=== PATIENT | male | born 1960 | race Caucasian/White ===

== ENCOUNTER 2018-04-17 21:00 | Inpatient (IN) | payer OTHER ==
[~2018-04-17 21:00] MED LIST: ISOVUE-370 76%-LOCM 1 ML ONE; Lidocaine 1% PF 5 ML VIAL ONE; PROPOFOL 200 MG/20 ML VIAL ONE; Succinylcholine Chloride 20 MG/ML 10 ml SYRINGE FS ONE; ePHEDrine/0.9% NaCl/PF SYRINGE 50 mg/10 ml ONE
[2018-04-17] MEDS ORDERED: Ondansetron ODT 4 MG TAB ONE (21:23)
[2018-04-17 21:29] LABS: #Eosinphils 0.2 thou/uL (0.0-0.7); #Lymphocytes 0.6 thou/uL (1.20-3.40); #Neutrophils 6.9 thou/uL (1.40-6.50); %Eosinophils 1.8 % (0.0-10.0); %Lymphocytes 6.4 % (21.0-51.0); %Monocytes 11.8 % (0.0-10.0); Hemoglobin 14.5 g/dL (14.0-18.0); Mean Corpuscular HGB CONC 35.8 g/dL (32.0-36.0); Mean Corpuscular Hemoglobin 31.3 pg (27.0-31.0); Mean Corpuscular Volume 87.3 fL (78.0-98.0); Mean Platelet Volume 7.3 fL (7.4-10.4); Platelet Count 184 thou/uL (130-400); RBC Distribution Width 14.1 % (11.5-14.5); Red Blood Cell (RBC) Count 4.65 mill/uL (4.70-6.10); White Blood Cell (WBC) Count 8.7 thou/uL (4.8-10.8)
[2018-04-17 21:50] LABS: ALT (SGPT) 74 U/L (8-55); AST (SGOT) 90 U/L (5-34); Alkaline Phosphatase 266 U/L (40-150); Anion Gap 13 mmol/L (10-20); BUN (Urea Nitrogen) 19 mg/dL (8.4-25.7); Calc. Creatinine Clearance 0 mL/min (70-130); Calcium 8.8 mg/dL (7.8-10.44); Carbon Dioxide 21 mmol/L (22-29); Chloride 94 mmol/L (98-107); Estimated GFR-MDRD 51; Globulin 4.5 g/dL (2.4-3.5); Glucose 237 mg/dL (70-105); Lipase 40 U/L (8-78); Potassium 5.2 mmol/L (3.5-5.1); Protein, Total 7.5 g/dL (6.0-8.3); Sodium 123 mmol/L (136-145)
--- NOTE | 2018-04-17 22:05 | CT ---
CT ABDOMEN AND PELVIS WITH CONTRAST: History: Abdominal pain after drinking a sports drink. Nausea, vomiting. Technique: Multiple contiguous axial images were obtained in a CT of the abdomen and pelvis with cont rast. Coronal reformats were performed. FINDINGS: The liver is cirrhotic in appearance. The spleen is enlarged measuring 14.1 cm in length. There are s plenic and gastric varies. There is a recanalized parumbilical vein with extensive abdominal wall cheryl ices. There is free air in the upper abdomen. The source for this free air is uncertain. There is moderate stool in the rectum. The small bowel is unremarkable. The appendix is normal. No free fluid is seen i n the abdomen or pelvis. The visualized inferior thoracic is unremarkable. No focal lytic lesions are seen. There are gallston es in the gallbladder. There is a nonobstructing calcification in the right kidney. A subcentimeter h ypodensity in the right kidney likely represents a cyst. The left kidney, adrenal glands, and pancrea s are unremarkable. No abdominal or pelvic lymphadenopathy are seen. Atherosclerotic calcifications a re seen in the aorta. Degenerative changes are seen in the spine. IMPRESSION: 1. There is free air in the abdomen which is likely secondary to a perforated discus. The discus caus ing this is not able to be identified on this CT examination. 2. Cirrhosis with sequellae of portal hypertension. 3. Cholelithiasis. 4. Nonobstructing right renal calcification. 5. Right renal cyst. 6. Dr. Ocasio notified of the findings at 9:56 p.m. on 04-17-18. POS: [facility]
[2018-04-17] MEDS ORDERED: Piperacillin/Tazobactam 4.5 GM VIAL ONE (22:14)
[2018-04-17 22:20] LABS: INR-International Normal Ratio 1.2; Prothrombin Time 14.9 SEC (12.0-14.7)
[2018-04-17] MEDS ORDERED: Fentanyl 100 MCG/2 ML VIAL ONE (22:31)
[2018-04-17] MEDS ORDERED: Ondansetron HCl/PF 4 MG/2 ML Vial IVP PRN (22:46)
--- NOTE | 2018-04-18 00:01 | HP ---
HISTORY OF PRESENT ILLNESS: A 57-year-old male incarcerated [facility], presents to the emergency room with abdominal pain for 24 hours. He underwent a CAT scan demonstrating free air. White count is 8, hemoglobin 14, platelet count 184,000. PT 14.9, slightly elevated INR 1.2, PTT 34.6. Basic me tabolic profile: Sodium 123, potassium 5.2, carbon dioxide 21, BUN 19, creatinine 1.43, glucose 237. Bilirubin is 3, AST 90, ALT 74, lipase 40. CAT scan of abdomen and pelvis could not reveal where t he pneumoperitoneum is. The etiology is pneumoperitoneum. CAT scan did demonstrate changes consiste nt with cirrhosis, splenomegaly, splenic and gastric varices and an extensive abdominal wall varices. ALLERGIES: None. SOCIAL HISTORY: Tobacco: The patient has been incarcerated for 10 years. He did not smoke prior to this. Alcohol, he is incarcerated for 10 years, did not consume excessive alcohol prior to this inc arceration. Drug use, cocaine use prior to incarceration. MEDICATIONS: Citalopram 20 mg q.a.m. for 30 days, diphenhydramine 25 mg twice a day; Havrix 1440 un its per meal, one syringe intermuscular dose once a day for 180 days (for hepatitis A), Novolin insul in 100 units 10 mL vial 33 units subcu a.m., 22 units subcutaneous p.m., Novolin R 100 units 10 mL vial 5 units subcu twice daily morning and evening, Novolin 100 sliding scale, risperidone 1 mg a.m., ursodiol 300 mg 3 times a day, Xifaxan 200 mg tabs twice a day for 30 days, Tylenol twice daily p.r. n. 325 mg, aspirin 81 mg a day, atorvastatin 10 mg a day, body lotion Clotrimazole 1% cream twice char ly, ferrous sulfate 325 three times a day for 30 days, furosemide 40 mg a day for 30 days, hemorrhoid al cream at bedtime, lactulose 10 g per 15 mL 30 mL (20 grams) three times a day, levothyroxine 0.15 mg daily, omeprazole 20 mg daily, propranolol 20 mg b.i.d., Proventil inhaler 4 times a day as needed , Qvar 80 mcg inhaler 120 puffs b.i.d., spironolactone 25 mg twice a day, triamcinolone cream twice d aily. PAST SURGICAL HISTORY: Inguinal hernia repair. PAST MEDICAL HISTORY: Chromatosis, cirrhosis, insulin-dependent diabetes, hypertension, diabetic madison ropathy, esophageal varices, first diagnosed in 08/2015, hyperlipidemia, hypothyroidism treated medic ally, mild persistent asthma, PAD, psoriasis, and hepatitis A. REVIEW OF SYSTEMS: Ten point noncontributory. FAMILY HISTORY: Noncontributory. 1. Patient states he had 6 months ago some sort of cardiac evaluation, sounds like a PET scan and he was told his heart was okay. 2. Depressive illness. 3. Essential hypertension. 4. As above, type 2 diabetes, insulin-dependent. 5. Chronic ischemic heart disease specified this is a diagnosis from the assisted. PHYSICAL EXAMINATION: VITAL SIGNS: 69 kilograms, 113/41, 72 18, 98 degrees. HEAD, EYES, EARS, NOSE AND THROAT: Unremarkable. LUNGS: Clear to auscultation. CARDIAC: Regular rate and rhythm without murmur or gallop. ABDOMEN: Diffusely tender. Slightly protuberant, peritoneal signs diffusely. EXTREMITIES: No ankle edema. No changes of chronic venous stasis. SKIN: Skin color is slightly jaundiced. ASSESSMENT AND PLAN: 1. Perforated viscus with peritoneal signs and acute abdomen. He has been on a PPI. He does have c irrhosis. Laparotomy has increased risk of , bleeding, uremia, renal failure have discussed thi s with the patient. We will plan laparotomy, abdominal washout. Procedures indicated based on lapar otomy findings. 2. Cirrhosis. 3. Splenomegaly. 4. History of esophageal varices. Platelet count is normal. PT/INR essentially normal. Bilirubin and transaminases are elevated. 5. History of hepatitis A. 6. Chromatosis. 7. Type 2 insulin-dependent diabetes mellitus. 8. Hypertension. 9. Elevated cholesterol. 10. Heart disease listed as a diagnosis. The patient states having hard exam and was told things lo oked like they were okay 6 months ago.
[2018-04-18] MEDS ORDERED: Midazolam HCl 2 mg/2 ml Vial ONE (00:49)
[2018-04-18] MEDS ORDERED: Dextrose 5% in Water 1,000 ML IV PRN (01:02)
[2018-04-18] MEDS ORDERED: Dextrose 50% Abboject 50 ML SYRINGE SLOW IVP PRN (01:02)
[2018-04-18] MEDS ORDERED: Ondansetron HCl/PF 4 MG/2 ML Vial IVP PRN (01:14)
[2018-04-18] MEDS ORDERED: Ondansetron ODT 4 MG TAB SL PRN (01:14)
[2018-04-18] MEDS ORDERED: Lactated Ringer's 1,000 ML IV SCH (01:15)
[2018-04-18] MEDS ORDERED: Ventilator Sedation Protocol 1 EACH FS SCH (01:15)
[2018-04-18] MEDS ORDERED: Fentanyl 100 MCG/2 ML VIAL SLOW IVP PRN (01:15)
[2018-04-18] MEDS ORDERED: Propofol BOLUS 1,000 MG/100 ML VIAL IV PRN (01:26)
[2018-04-18] MEDS ORDERED: fentaNYL Citrate/PF 2,000 MCG in Sodium Chloride 0.9% 60 ML IV SCH (01:26)
[2018-04-18] MEDS ORDERED: DISCONTINUE PREVIOUS NARCOTIC PAIN MEDICATIONS AND BENZODIAZEPINES FS SCH (01:26)
[2018-04-18] MEDS ORDERED: Lorazepam 2 MG/ML VIAL SLOW IVP PRN (01:26)
[2018-04-18] MEDS ORDERED: Propofol 1,000 MG/100 ML VIAL IV PRN (01:26)
[2018-04-18] MEDS ORDERED: Fentanyl BOLUS 250 ML IVPB PRN (01:26)
[2018-04-18] MEDS: Sodium Chloride 0.9% 1,000 ML IV SCH ×3 (01:56→20:43)
[2018-04-18] MEDS: Albumin 25% 25 GM/100 ML BOT IVPB SCH ×4 (02:28→20:41)
--- NOTE | 2018-04-18 04:15 | OP ---
DATE OF OPERATION: 04/18/2018 PREOPERATIVE DIAGNOSES: Acute abdomen peritonitis, perforated ulcer. POSTOPERATIVE DIAGNOSES: Perforated pyloric channel ulcer, cirrhosis, diabetes, hypertension. PROCEDURES: Left subclavian vein triple lumen catheter. Exploratory laparotomy, Heineke-Mikabilioz py loroplasty omental patch closure, #19 gold JOSE CARLOS drain. FINDINGS: Cirrhotic liver. No significant ascites only bile peritonitis from the perforated ulcer. SURGEON: Dr. Desean Taveras. ANESTHESIA: General anesthesia. ESTIMATED BLOOD LOSS: 300 mL. Note, most of blood loss from the subcutaneous tissue with her dilated veins. Prevena VAC left over the wound. Telfa yanet left in a staple closed wound. DESCRIPTION OF PROCEDURE: The patient was taken to the operating room where under general anesthesia in supine position, left periclavicular chest prepared with ChloraPrep, draped in routine fashion. Trocar catheter cannulated the subclavian vein in infraclavicular approach. Seldinger technique used to place a triple lumen catheter securing it with 3-0 silk suture. Biopatch sterile dressing applie d after the J-wire removed. Each port aspirated blood and flushed with saline solution. Abdomen was clipped of hair, prepared with ChloraPrep, draped in routine fashion. Incision was made in the upper abdomen, came down to skin and subcutaneous tissue, midline fascia and abdominal cavity sharply. There was of significant blood loss from subcutaneous tissue from dilated veins. This was controlled with cautery. Liver was cirrhotic. There was not any significant ascites, but there was bile peritonitis and this was evacuated. Nancy maneuver performed, taking great care using clips an d LigaSure and cautery to mobilize the hepatic flexure to mobilize the colon out of the way and then Nancy maneuver performed mobilizing the duodenum and the first and second portion of the duodenum. Perforated pyloric channel ulcer noted. Pyloroplasty undertaken with the cautery. Longitudinal teno last, pyloromyotomy and duodenotomy and transverse closure in two layers with inner layer in a contin uous locked suture of 3-0 Vicryl and outer layer of the abdomen with Lembert suture of 2-0 silk. The re was a tension free closure. NG tube was palpated in good position as placed by Anesthesia. Oment al patch mobilized from the transverse colon using the LigaSure and cautery and secured to the closur e with interrupted suture of 2-0 silk. Abdominal cavity thoroughly irrigated with 4-5 liters of sali ne solution, irrigant evacuated. #19 gold JOSE CARLOS drain placed through a right lateral abdominal wall inc ision and brought into the subhepatic space, secured with 3-0 nylon suture. A sponge and needle coun ts were correct and good hemostasis obtained. Midline fascia closed with continuous suture of #1 PDS . Skin and subcutaneous tissues irrigated, skin approximated loosely with michael and Telfa yanet ap plied. Prevena dressing applied.
[2018-04-18 05:11] LABS: INR-International Normal Ratio 1.3; PTT 34.1 SEC (22.9-36.1)
[2018-04-18 05:24] LABS: ALT (SGPT) 63 U/L (8-55); AST (SGOT) 77 U/L (5-34); Albumin 3.2 g/dL (3.5-5.0); Alkaline Phosphatase 162 U/L (40-150); Anion Gap 14 mmol/L (10-20); BUN (Urea Nitrogen) 17 mg/dL (8.4-25.7); Bilirubin, Total 4.5 mg/dL (0.2-1.2); Calc. Creatinine Clearance 90 mL/min (70-130); Calcium 8.2 mg/dL (7.8-10.44); Carbon Dioxide 18 mmol/L (22-29); Chloride 104 mmol/L (98-107); Estimated GFR-MDRD 89; Globulin 3.2 g/dL (2.4-3.5); Glucose 202 mg/dL (70-105); Potassium 4.5 mmol/L (3.5-5.1); Protein, Total 6.4 g/dL (6.0-8.3); Sodium 131 mmol/L (136-145)
[2018-04-18 06:28] LABS: #Lymphocytes 0.2 thou/uL (1.20-3.40); #Monocytes 0.8 thou/uL (0.11-0.59); #Neutrophils 6.9 thou/uL (1.40-6.50); %Eosinophils 0.1 % (0.0-10.0); %Monocytes 9.9 % (0.0-10.0); %Neutrophils 87.9 % (42.0-75.0); Hemoglobin 11.2 g/dL (14.0-18.0); Mean Corpuscular HGB CONC 35.2 g/dL (32.0-36.0); Mean Corpuscular Hemoglobin 30.9 pg (27.0-31.0); Mean Corpuscular Volume 87.6 fL (78.0-98.0); Mean Platelet Volume 7.7 fL (7.4-10.4); PLT Morphology Comment Appears Decreased; Platelet Count 86 thou/uL (130-400); RBC Distribution Width 14.1 % (11.5-14.5); RBC Morphology Normal; Red Blood Cell (RBC) Count 3.63 mill/uL (4.70-6.10); White Blood Cell (WBC) Count 7.8 thou/uL (4.8-10.8)
[2018-04-18] MEDS: HumaLOG 300 UNITS/3 ML VIAL SC PRN ×3 (07:21→18:39)
[2018-04-18] MEDS: Albuterol Sulfate 2.5 mg/3 ml Neb NEB SCH ×4 (07:47→23:40)
[2018-04-18] MEDS ORDERED: DC Sedation Protocol FS ONE (07:56)
--- NOTE | 2018-04-18 08:27 | CON ---
DATE OF CONSULTATION: 04/18/2018 CONSULTING PHYSICIAN: Dr. Taveras. REASON FOR CONSULTATION: Critical care management. The following encompasses 40 minutes of critical care time. HISTORY OF PRESENT ILLNESS: Mr. Houston is a 57-year-old inmate, who underwent a laparotomy for a pe rforated pyloric channel ulcer yesterday. He was left intubated after surgery and is currently resti ng comfortably on mechanical ventilation. PAST MEDICAL HISTORY: 1. Cirrhosis. 2. Insulin-dependent diabetes mellitus. 3. Esophageal varices. 4. Hyperlipidemia. 5. Hypothyroidism. 6. Asthma. 7. Peripheral vascular disease. 8. Psoriasis. 9. Hepatitis A. 10. There is a mention in the history and physical of what appears to be hemochromatosis. PAST SURGICAL HISTORY: Inguinal hernia repair and the pyloric channel ulcer repair last night. ALLERGIES: None. SOCIAL HISTORY: He has been in senior living for over 10 years. No history of smoking. Does not consume a lcohol. He did use cocaine prior to being in [facility]. FAMILY MEDICAL HISTORY: Unremarkable. ALLERGIES: None. REVIEW OF SYSTEMS: Twelve-point review of systems cannot be obtained, as patient is currently on [facility] hanical ventilation. PHYSICAL EXAMINATION: VITAL SIGNS: Heart rate 96, blood pressure 90/52, O2 sat 100%, respiratory rate 14. GENERAL: He is awake, alert, and can follow commands. HEENT: Pupils react. Sclerae icteric. Oropharynx clear. NECK: Without adenopathy or JVD. LUNGS: Clear without wheezing or rhonchi. CARDIOVASCULAR: S1 and S2 regular. No audible murmur, rub, or gallop. ABDOMEN: He has midline wound VAC in place. Right-sided peritoneal drain in place. EXTREMITIES: No clubbing, cyanosis, or edema. He has dark colored skin. LABORATORY DATA: White blood cell count 7.8, hematocrit 31.8, platelet count 86. INR 1.3, PTT 34.1. Sodium 131, potassium 4.5, chloride 104, CO2 of 18, BUN 17, creatinine 0.8, glucose 203. Chest x-r ay shows a properly placed endotracheal tube, maybe a subtle left pleural effusion. ASSESSMENT: 1. Status post laparotomy with the patient left intubated after surgery. This is not a complication of surgery, but is an expected finding after prolonged surgery. 2. History of cirrhosis. 3. Insulin-dependent diabetes mellitus. PLAN: 1. The patient passed a spontaneous breathing trial and can be extubated. 2. He is continuing antibiotics for presumed peritonitis. Continue normal saline. 3. He is on enoxaparin for DVT prophylaxis and Protonix for GI prophylaxis. We will follow with you .
[2018-04-18] MEDS: Piperacillin/Tazobactam 3.375 GM in Sodium Chloride 0.9% 100 ML IVPB SCH ×2 (08:54→12:35)
[2018-04-18] MEDS: Pantoprazole 40 MG VIAL IVP SCH ×2 (08:54→20:31)
[2018-04-18] MEDS ORDERED: RIFAXIMIN PER TUBE SCH (09:00)
[2018-04-18] MEDS ORDERED: Levothyroxine 150 MCG TAB PER TUBE SCH (09:00)
[2018-04-18] MEDS ORDERED: Citalopram 20 MG TAB PER TUBE SCH (09:00)
[2018-04-18] MEDS ORDERED: Atorvastatin Calcium 10 MG TAB PER TUBE SCH (09:00)
[2018-04-18] MEDS ORDERED: Non-Formulary Item 1 EACH (Ferrous Sulfate [Ferrous Sulfate] 325 MG) PER TUBE SCH (09:00)
[2018-04-18] MEDS ORDERED: Propranolol 10 MG TAB PER TUBE SCH (09:00)
[2018-04-18] MEDS ORDERED: risperiDONE 1 MG TAB PER TUBE SCH (09:00)
[2018-04-18] MEDS ORDERED: Ursodiol 300 MG CAP PER TUBE SCH (09:00)
[2018-04-18] MEDS ORDERED: Acetaminophen 325 MG TAB PER TUBE SCH (09:00)
--- NOTE | 2018-04-18 09:56 | RAD ---
PORTABLE CHEST: Date: 04/18/18 HISTORY: Respiratory distress. Intubation. FINDINGS: Endotracheal and NG tubes are in satisfactory position. Patient is rotated on this exam. Left subclav osvaldo line is seen, catheter tip overlies the superior vena cava. No signs of pneumothorax. There are i nterstitial changes in the bases, probably related to atelectasis. IMPRESSION: 1. Endotracheal and NG tubes in satisfactory position. 2. Bibasilar atelectatic lung change. POS: [facility]
--- NOTE | 2018-04-18 11:51 | CON ---
DATE OF CONSULTATION: 04/18/2018 PRIMARY CARE PHYSICIAN: [facility] call admission. PRIMARY ATTENDING: Dr. Taveras. REASON FOR CONSULTATION: Medical comanagement. HISTORY OF PRESENT ILLNESS: A 57-year-old male, who has underlying history of cirrhosis of liver with portal hypertension, who lives in detention. He was taken yesterday evening to [facility] for acute abdominal pain. He was hypotensive. He had recently GI bleed 2 weeks ago. The patient was having diffuse abdominal pain. He was hypotensive in the emergency room with a blood pressure 87/39. Patient was diagnosed with a perforated viscus through CT abdomen and pelvis and he was suffering from acute abdomen. He was having nausea and vomiting yesterday whole day. His pain has gradually gotten worse and he was feeling weak, dizzy, lightheaded, and that is why he was taken to emergency room. Reason his blood pressure was in 80s, he was recently admitted at [facility] for GI bleed. At that time, he had melena and hematemesis. Last night, the patient was admitted under General Surgery. Patient underwent laparotomy, and pyloroplasty was performed. Patient was found with a perforated pyloric channel ulcer. After surgery, his wound was closed with a wound VAC. He was in CCU. He was having NG tube with low intermittent suction. His pain was controlled. We were consulted this morning for medical comanagement. He has underlying cirrhosis of liver with portal hypertension. He has diabetes and other medical issues. REVIEW OF SYSTEMS: The following complete review of systems was negative, unless otherwise mentioned in the HPI or below: Constitutional: Weight loss or gain, ability to conduct usual activities. Skin: Rash, itching. Eyes: Double vision, pain. ENT/Mouth: Nose bleeding, neck stiffness, pain, tenderness. Cardiovascular: Palpitations, dyspnea on exertion, orthopnea. Respiratory: Shortness of breath, wheezing, cough, hemoptysis, fever, or night sweats. Gastrointestinal: Poor appetite, abdominal pain, heartburn, nausea, vomiting, constipation, or diarrhea. Genitourinary: Urgency, frequency, dysuria, nocturia. Musculoskeletal: Pain, swelling. Neurologic/Psychiatric: Anxiety, depression. Allergy/Immunologic: Skin rash, bleeding tendency. Please see my HPI for pertinent positive and negative. All other review of systems reviewed and negative except as mentioned in the HPI. CURRENT HOME MEDICATIONS: Aspirin 81 mg daily, Lipitor 10 mg p.o. daily, Celexa 20 mg daily, Lasix 40 mg p.o. b.i.d., lactulose 30 mL p.o. 4 times daily , levothyroxine 100 mcg p.o. daily, Novolin R 12 units subcu twice daily, potassium chloride 10 mEq p.o. daily, Inderal 10 mg twice daily, Qvar inhalation twice daily, risperidone 1 mg p.o. daily, Aldactone 100 mg twice daily, ursodiol 300 mg 3 times daily, rifaximin 600 mg twice daily. PAST MEDICAL HISTORY: Diabetes, type 2, on insulin; hypothyroidism; cirrhosis of liver with portal hypertension; dyslipidemia. PAST SURGICAL HISTORY: Hernia repair x2; right arm surgery; cyst removed from his cheek. PAST PSYCHIATRIC HISTORY: Anxiety and depression. SOCIAL HISTORY: Patient does not have any history of alcohol abuse. He is a former drug abuser. He abused cocaine. He denies any smoking. FAMILY HISTORY: No strong family history of premature coronary artery disease, stroke, or cancer. ALLERGY: No known drug allergy EMERGENCY ROOM COURSE: Patient was given IV fluid. He was given Zosyn, morphine, ringer lactate IV fluid, and Zofran. PHYSICAL EXAMINATION: VITAL SIGNS: In our emergency room, blood pressure improved to 132/70, pulse 64 , respiratory rate 18, temperature 97.8, saturation 100% on room air, weight 69.4 kilograms. GENERAL: This morning, the patient is alert, awake, in no obvious acute distress. HEENT: Head: Normocephalic, atraumatic. Eyes: Pupils round, reactive to light. Extraocular muscle intact. ENT: NG tube in place with low intermittent suction. Dry-appearing mucous membranes. No oral lesion. No pharyngeal erythema, no exudate, no thrush. NECK: Supple, no JVD, no thyromegaly, no carotid bruit. LUNGS: Clear to auscultation without any rhonchi or rales. CARDIAC: S1 and S2, regular. No murmur, no gallop, no rub. ABDOMEN: Patient does not have any bowel sound. He has surgical site with a wound VAC in place. GENITALIA: Lobato catheter in place. EXTREMITIES: No edema. Good peripheral pulsation. SKIN: No skin rash. HEMATOLOGICAL SYSTEM: No lymphadenopathy. PSYCHIATRIC: Normal affect. SIGNIFICANT LABORATORY DATA: Today, CBC: WBC 7.8, hemoglobin 11.2, platelets 86. INR 1.3. BMP: Sodium 131, potassium 4.5, chloride 104, carbon dioxide 18 , BUN 17, creatinine 0.88, glucose 202, calcium 8.5. LFTs: Bilirubin 4.5, AST 77, ALT 63, alkaline phosphatase is 162, albumin 3.2, lipase 40. CT of the abdomen and pelvis done in the emergency room, which showed free air in the abdomen secondary to perforated viscus, cirrhosis with portal hypertension, cholelithiasis, nonobstructive right renal calcification. Chest x -ray, based on my review, endotracheal and NG tube in satisfactory position, bibasilar atelectatic lung changes. ASSESSMENT AND PLAN: 1. Acute abdomen secondary to perforated pyloric channel ulcer, status post exploratory laparotomy and pyloroplasty. We will defer management to primary team. Currently, patient has NG tube with low intermittent suction. He is n.p.o. He required, after surgery, transient endotracheal intubation and mechanical ventilatory support, and this morning, he is extubated. We will control his pain with pain medication. Surgical care, after surgery, we will defer to primary team. 2. Abnormal electrolytes. He has initially hyponatremia and hyperkalemia, most likely related with his cirrhosis of liver, as well as his aldosterone and Lasix use, but currently sodium improved and potassium is also improved. We will monitor electrolytes while in hospital and correct accordingly. 3. Acute kidney failure, prerenal etiology. After IV fluid, the patient's renal function is improved to normal. 4. Cirrhosis of liver with portal hypertension. He has abnormal LFTs. Etiology is uncertain at this point, but we will check hepatitis profile tomorrow morning and HIV. 5. Diabetes, type 2. Patient is currently n.p.o. We will continue with insulin as per sliding scale per protocol. Diabetic diet will be given when patient is able to take oral intake. 6. Thrombocytopenia, likely related with cirrhosis of liver. At this point, we will hold on any heparin products, because of low platelet count. Only sequential compression device boots will be given to prevent any bleeding. 7. Gastrointestinal prophylaxis, Protonix 40 mg IV q.12 hourly. 8. Postoperative transient respiratory insufficiency, requiring mechanical ventilatory support. Pulmonary consulted. The patient is extubated this morning. Sedation protocol discontinued. 9. Dyslipidemia. We will continue Lipitor 10 mg p.o. daily when patient's oral intake resumed. 10. Anxiety with depression. Similarly, Celexa and risperidone will be restarted when patient able to take oral intake. 11. Hypothyroidism. We will continue Synthroid 150 mcg p.o. daily when oral intake resumed. 12. Asthma. We will continue Ventolin nebulization q.6 hourly p.r.n., Dulera inhalation twice daily. 13. Cirrhosis of liver with portal hypertension. As mentioned above, when the patient's oral intake resumed, at that time we will resume his Inderal, rifaximin, Aldactone, ursodiol, Lasix as per home dosage. 14. Deep venous thrombosis prophylaxis. Sequential compression device boots only. No Lovenox, because of low platelet count and a recent history of gastrointestinal bleed. 15. Gastrointestinal prophylaxis, Protonix 40 mg IV b.i.d. 16. Code status: The patient is FULL CODE. Patient does not have any surrogate decision maker. Thank you for the consult. We will follow up with you while in hospital. SUZY
--- NOTE | 2018-04-18 12:53 | PRG ---
DATE OF SERVICE: 04/18/2018 SUBJECTIVE: Mr. Houston is in ICU this morning. Dr. Harper saw him and extubated him. He is awake and alert and conversive. OBJECTIVE: VITAL SIGNS: 98.4, 100, 190/49. Lobato catheter, 990 mL out in the last 24 hours postoperatively. J P drain output not recorded. LUNGS: Clear to auscultation. CARDIAC: Regular rate and rhythm without murmur, rub, or gallop. ABDOMEN: Soft, no guarding. Postoperative tenderness. Prevena wound VAC over the closed wound with michael and Telfa. EXTREMITIES: Unremarkable. LABORATORY DATA: White count 7.8, hemoglobin 11.2. Sodium 131, potassium 4.5, BUN and creatinine 17 and 0.88, bilirubin 4.5 up from 3.0, AST and ALT stable essentially. This morning, his PT is 16 and INR 1.3. ASSESSMENT AND PLAN: 1. Perforated pyloric channel ulcer. Continue JOSE CARLOS drain. Continue NG tube. Continue n.p.o. status. Continue intravenous antibiotics. 2. 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 Platelet count is okay. There was no significant ascites foun d at the time of operation, only bilious drainage from his perforated ulcer. Etiology of cirrhosis i s uncertain at this time. He has been on iron therapy, which contradicts hemochromatosis etiology. He reports hepatitis serology has been negative. Hepatitis A treatment undergoing at the present. 3. Hypertension. 4. Diabetes mellitus. 5. Asthma. Appreciate residential sales consultant's help in his care, hospitalist, and critical care. At this point, the patient is stable, can be moved to the floor.
[2018-04-18] MEDS: Piperacillin/Tazobactam 3.375 GM, Admixture Fee 1 EACH in Sodium Chloride 0.9% 100 ML IVPB SCH ×2 (18:29→23:42)
[2018-04-18] MEDS ORDERED: Enoxaparin Sodium 30 MG/0.3 ML SYRINGE SC SCH (21:00)
[2018-04-18] MEDS ORDERED: NPH, Human Insulin Isophane 300 UNIT/3 ML VIAL SC SCH (21:00)
[2018-04-19] MEDS: Albumin 25% 25 GM/100 ML BOT IVPB SCH ×4 (01:43→20:40)
[2018-04-19] MEDS: HumaLOG 300 UNITS/3 ML VIAL SC PRN ×4 (01:43→18:31)
[2018-04-19] MEDS: Sodium Chloride 0.9% 1,000 ML IV SCH ×2 (02:04→19:37)
[2018-04-19 04:28] LABS: INR-International Normal Ratio 1.6; PTT 41.4 SEC (22.9-36.1); Prothrombin Time 18.9 SEC (12.0-14.7)
[2018-04-19 04:36] LABS: ALT (SGPT) 39 U/L (8-55); AST (SGOT) 39 U/L (5-34); Albumin 3.7 g/dL (3.5-5.0); Alkaline Phosphatase 87 U/L (40-150); Anion Gap 11 mmol/L (10-20); BUN (Urea Nitrogen) 20 mg/dL (8.4-25.7); Bilirubin, Total 3.4 mg/dL (0.2-1.2); Calc. Creatinine Clearance 82 mL/min (70-130); Calcium 8.6 mg/dL (7.8-10.44); Carbon Dioxide 21 mmol/L (22-29); Chloride 108 mmol/L (98-107); Estimated GFR-MDRD 79; Globulin 2.3 g/dL (2.4-3.5); Glucose 183 mg/dL (70-105); Potassium 4.2 mmol/L (3.5-5.1); Sodium 136 mmol/L (136-145)
[2018-04-19 04:56] LABS: HBCM Index 0.08 S/CO (0-0.79); Hep A IgM AB Non-Reactive (NonReactive); Hep A IgM S/CO 0.12 S/CO (0-0.79); Hep B Surf Ag Non-Reactive S/CO (NonReactive); Hep C IgG Ab Non-Reactive (NonReactive); Hep C Index 0.12 S/CO (0-0.79); Hepatitis B Core IGM Abs Non-Reactive (NonReactive)
[2018-04-19 05:27] LABS: Band 11 % (5-11); Eosinophils 2 % (0-10); Hemoglobin 7.9 g/dL (14.0-18.0); Lymphocytes 4 % (21-51); MDiff Complete? YES; Mean Corpuscular HGB CONC 35.8 g/dL (32.0-36.0); Mean Corpuscular Hemoglobin 31.8 pg (27.0-31.0); Mean Corpuscular Volume 88.8 fL (78.0-98.0); Mean Platelet Volume 7.9 fL (7.4-10.4); Monocytes 20 % (0-10); Neutrophil 63 % (42-75); PLT Morphology Comment Appears Decreased; Platelet Count 47 thou/uL (130-400); RBC Distribution Width 13.9 % (11.5-14.5); Red Blood Cell (RBC) Count 2.48 mill/uL (4.70-6.10); White Blood Cell (WBC) Count 3.8 thou/uL (4.8-10.8)
[2018-04-19] MEDS: Piperacillin/Tazobactam 3.375 GM, Admixture Fee 1 EACH in Sodium Chloride 0.9% 100 ML IVPB SCH ×3 (06:00→18:43)
[2018-04-19] MEDS: Albuterol Sulfate 2.5 mg/3 ml Neb NEB SCH ×4 (07:11→23:55)
[2018-04-19] MEDS ORDERED: hydrALAZINE 20 MG/ML VIAL SLOW IVP PRN (07:45)
[2018-04-19] MEDS ORDERED: Eucerin (Mineral Oil/Petrolatum,White) 30 gm Jar TOP PRN (07:45)
[2018-04-19] MEDS ORDERED: Artificial Tears 18 DROP/0.9 ML EA EYE PRN (07:45)
[2018-04-19] MEDS ORDERED: Acetaminophen 650 MG Suppository PR PRN (07:45)
[2018-04-19] MEDS ORDERED: Sodium Chloride 0.65% Nasal 44 ML BOT EA NARE PRN (07:45)
[2018-04-19] MEDS ORDERED: Chloraseptic Spray 180 ml Bottle PO PRN (07:45)
[2018-04-19] MEDS ORDERED: Bisacodyl 10 MG SUPP PR PRN (07:45)
[2018-04-19] MEDS: Pantoprazole 40 MG VIAL IVP SCH ×2 (08:59→20:41)
[2018-04-19] MEDS ORDERED: Vancomycin HCl 1 GM in Premix Bag 1 BAG IVPB SCH (09:00)
--- NOTE | 2018-04-19 11:02 | PDOC.PN ---
- Subjective Encounter Start Date: 04/19/18 Encounter Start Time: 08:20 pt is seated in bed, his pain is at surgical site, he has not passed gas, has NG tube, received blood - Objective MAR Reviewed: Yes Vital Signs & Weight: Vital Signs (12 hours) Temp Pulse Pulse Resp BP BP Pulse Ox 04/19/18 08:36 98.8 F 114 H 22 H 94/56 L 97 04/19/18 08:35 98.8 F 114 H 22 H 94/56 L 97 04/19/18 07:50 98.0 F 116 H 116 H 22 H 95/53 L 95/53 L 94 L 04/19/18 07:11 110 H 16 04/19/18 04:26 98.2 F 102 H 20 98/52 L 97 04/19/18 00:11 98.3 F 101 H 20 87/44 L 90 L 04/18/18 23:42 90 L 04/18/18 23:40 91/49 L 90 L Most Recent Monitor Data Heart Rate from ECG 101 NIBP 96/51 NIBP BP-Mean 63 Respiration from ECG 21 SpO2 96 I&O: 04/18/18 04/19/18 04/20/18 06:59 06:59 06:59 Intake Total 711.9 2160 0 Output Total 990 2065 Balance -278.1 95 0 Result Diagrams: 04/19/18 03:45 04/19/18 03:45 Additional Labs: Accuchecks 04/19/18 04/19/18 04/18/18 06:06 00:39 18:20 POC Glucose 187 H 206 H 207 H 04/18/18 12:01 POC Glucose 205 H Phys Exam - Physical Examination Constitutional: NAD HEENT: PERRLA, moist MMs NG tube+ Neck: no JVD, supple Respiratory: no wheezing, no rales, no rhonchi Cardiovascular: RRR, no significant murmur, no rub Gastrointestinal: soft surgical site with dressing Musculoskeletal: no edema, pulses present Neurological: non-focal, moves all 4 limbs Lymphatic: no nodes Psychiatric: normal affect Skin: no rash, normal turgor Dx/Plan (1) Acute abdomen Code(s): R10.0 - ACUTE ABDOMEN Status: Acute Comment: due to 2 (2) Perforated abdominal viscus Code(s): [id number] - Status: Acute (3) S/P laparotomy Status: Acute Comment: for problem 1 (4) Abnormal LFTs Code(s): R94.5 - ABNORMAL RESULTS OF LIVER FUNCTION STUDIES Status: Chronic (5) Diastolic dysfunction Code(s): I51.9 - HEART DISEASE, UNSPECIFIED Status: Chronic (6) Pancytopenia Code(s): D61.818 - OTHER PANCYTOPENIA Status: Chronic (7) Thrombocytopenia Code(s): D69.6 - THROMBOCYTOPENIA, UNSPECIFIED Status: Chronic (8) Anxiety and depression Code(s): F41.9 - ANXIETY DISORDER, UNSPECIFIED; F32.9 - MAJOR DEPRESSIVE DISORDER, SINGLE EPISODE, UNSPECIFIED Status: Chronic (9) Asthma Code(s): J45.909 - UNSPECIFIED ASTHMA, UNCOMPLICATED Status: Chronic (10) Cirrhosis of liver Code(s): K74.60 - UNSPECIFIED CIRRHOSIS OF LIVER Status: Chronic Qualifiers: Hepatic cirrhosis type: unspecified biliary cirrhosis Qualified Code(s): K74.5 - Biliary cirrhosis, unspecified (11) Diabetes type 2, controlled Code(s): E11.9 - TYPE 2 DIABETES MELLITUS WITHOUT COMPLICATIONS Status: Chronic (12) Dyslipidemia Code(s): E78.5 - HYPERLIPIDEMIA, UNSPECIFIED Status: Chronic (13) Hypertension Code(s): I10 - ESSENTIAL (PRIMARY) HYPERTENSION Status: Chronic (14) Acute kidney failure Status: Resolved (15) Hypokalemia Code(s): E87.6 - HYPOKALEMIA Status: Resolved (16) Hyponatremia Code(s): E87.1 - HYPO-OSMOLALITY AND HYPONATREMIA Status: Resolved (17) Wound infection Code(s): T14.8XXA - OTHER INJURY OF UNSPECIFIED BODY REGION, INITIAL ENCOUNTER; L08.9 - LOCAL INFECTION OF THE SKIN AND SUBCUTANEOUS TISSUE, UNSP Status: Acute Comment: over scalp with staph (18) Ileus following gastrointestinal surgery Code(s): K91.30 - POSTPROC INTESTINAL OBST, UNSP TO PARTIAL VERSUS COMPLETE Status: Acute (19) Anemia due to acute blood loss Code(s): D62 - ACUTE POSTHEMORRHAGIC ANEMIA Status: Acute - Plan cont current plan of care, continue antibiotics * received PRBC today * continue IVF * diet advancement as per surgeon when bowel function resume * medication reviewed as below * symptomatic treatment * continue post operative surgical care. * continue zosyn * will add vancomycin * albumin given * start low dose insulin Review of Systems - Review of Systems Constitutional: negative: fever, chills, sweats, weakness, malaise, other Eyes: negative: Pain, Vision Change, Conjunctivae Inflammation, Eyelid Inflammation, Redness, Other ENT: negative: Ear Pain, Ear Discharge, Nose Pain, Nose Discharge, Nose Congestion, Mouth Pain, Mouth Swelling, Throat Pain, Throat Swelling, Other Respiratory: negative: Cough, Dry, Shortness of Breath, Hemoptysis, SOB with Excertion, Pleuritic Pain, Sputum, Wheezing Cardiovascular: negative: chest pain, palpitations, orthopnea, paroxysmal nocturnal dyspnea, edema, light headedness, other Gastrointestinal: Abdominal Pain. negative: Nausea, Vomiting, Diarrhea, Constipation, Melena, Hematochezia, Other Genitourinary: negative: Dysuria, Frequency, Incontinence, Hematuria, Retention , Other Musculoskeletal: negative: Neck Pain, Shoulder Pain, Arm Pain, Back Pain, Hand Pain, Leg Pain, Foot Pain, Other Skin: negative: Rash, Lesions, Missael, Bruising, Other - Medications/Allergies Allergies/Adverse Reactions: Allergies Allergy/AdvReac Type Severity Reaction Status Date / Time No Known Drug Allergies Allergy Verified 04/18/18 19:40 Medications: Current Medications Acetaminophen (Tylenol) 650 mg MO Q4H PRN PRN Reason: Headache/Fever or Mild Pain Albumin Human (Albumin 25%) 25 gm IVPB 0200,0800,1400,2000 [facility] Stop: 04/20/18 02:01 Last Admin: 04/19/18 08:58 Dose: 25 gm Albuterol Sulfate (Ventolin) 2.5 mg NEB [id number] [facility] Last Admin: 04/19/18 07:11 Dose: 2.5 mg Artificial Tears (Tears Naturale) 0 drop EA EYE PRN PRN PRN Reason: Dry Eyes Bisacodyl (Dulcolax) 10 mg MO DAILYPRN PRN PRN Reason: Constipation Dextrose/Water (Dextrose 50%) 25 gm SLOW IVP PRN PRN PRN Reason: Hypoglycemia Glucagon (Glucagon) 1 mg IM PRN PRN PRN Reason: Hypoglycemia Hydralazine HCl (Apresoline) 10 mg SLOW IVP Q4H PRN PRN Reason: Systolic BP > 180 Dextrose/Water (D5w) 1,000 mls @ 0 mls/hr IV .Q0M PRN; As Directed PRN Reason: Hypoglycemia Sodium Chloride (Normal Saline 0.9%) 1,000 mls @ 120 mls/hr IV .Q8H20M [facility] Last Admin: 04/19/18 02:04 Dose: Not Given Piperacillin Sod/Tazobactam Sod 3.375 gm/ Miscellaneous Medication 1 each/ Sodium Chloride 100 mls @ 200 mls/hr IVPB Q6HR [facility] Last Admin: 04/19/18 06:00 Dose: 100 mls Vancomycin HCl 1 gm/ Device 200 mls @ 200 mls/hr IVPB Q12HR [facility] Last Admin: 04/19/18 10:27 Dose: 200 mls Insulin Human Isoph/Insulin Regular (Humulin 70/30) 10 units SC BID [facility] Insulin Human Lispro (Humalog) 0 units SC .AGGRESSIVE SLIDING PRN PRN Reason: Aggressive Correctional Scale Last Admin: 04/19/18 06:25 Dose: 3 unit Mineral Oil/White Petrolatum (Eucerin Cream) 0 gm TOP BIDPRN PRN PRN Reason: Dry Skin Miscellaneous Medication (Pharmacy To Dose) 0 each IVPB ASDIR PRN PRN Reason: Pharmacy to Dose VANCOMYCIN Mometasone Furoate/Formoterol Fumar (Dulera 100 Mcg/5 Mcg Inhaler) 1 puff INH BID-RT [facility] Morphine Sulfate (Morphine) 2 mg SLOW IVP Q2H PRN PRN Reason: Mild Pain (1-3) Last Admin: 04/19/18 09:53 Dose: 2 mg Morphine Sulfate (Morphine Sulfate) 4 mg SLOW IVP Q2H PRN PRN Reason: Moderate Pain (4-6) Last Admin: 04/18/18 14:39 Dose: 4 mg Ondansetron HCl (Zofran) 4 mg IVP Q6H PRN PRN Reason: Nausea/Vomiting Pantoprazole Sodium (Protonix) 40 mg IVP Q12HR [facility] Last Admin: 04/19/18 08:59 Dose: 40 mg Phenol (Chloraseptic [place] 180 Ml Bot) 0 ml PO PRN PRN PRN Reason: Sore Throat Sodium Chloride (Flush - Normal Saline) 10 ml IVF PRN PRN PRN Reason: Saline Flush Sodium Chloride (Flush - Normal Saline) 10 ml IV Q12HR [facility] Last Admin: 04/18/18 20:33 Dose: 10 ml Sodium Chloride ([place] Nasal [place] 0.65%) 0 ml EA NARE QIDPRN PRN PRN Reason: Nasal Congestion
[2018-04-19] MEDS: Insulin NPH/Reg Insulin Hm 300 UNITS/3 ML VIAL SC SCH ×2 (11:18→20:40)
[2018-04-19] MEDS ORDERED: Sodium Chloride 0.9% 1,000 ML IV SCH (11:36)
[2018-04-19] MEDS: Mometasone/Formoterol 120 PUFF INHALER INH SCH (19:09)
[2018-04-19 19:27] LABS: Hemoglobin 10.4 g/dL (14.0-18.0); Mean Corpuscular HGB CONC 36.4 g/dL (32.0-36.0); Mean Corpuscular Hemoglobin 32.1 pg (27.0-31.0); Mean Corpuscular Volume 88.3 fL (78.0-98.0); Mean Platelet Volume 7.4 fL (7.4-10.4); Platelet Count 65 thou/uL (130-400); RBC Distribution Width 13.7 % (11.5-14.5); Red Blood Cell (RBC) Count 3.24 mill/uL (4.70-6.10); White Blood Cell (WBC) Count 6.7 thou/uL (4.8-10.8)
[2018-04-19 19:58] LABS: Band 3 % (5-11); Eosinophils 1 % (0-10); Lymphocytes 4 % (21-51); MDiff Complete? YES; Monocytes 5 % (0-10); Neutrophil 86 % (42-75); PLT Morphology Comment Appears Decreased
[2018-04-20] MEDS: Piperacillin/Tazobactam 3.375 GM, Admixture Fee 1 EACH in Sodium Chloride 0.9% 100 ML IVPB SCH ×4 (00:10→17:47)
--- NOTE | 2018-04-20 01:52 | PRG ---
DATE OF SERVICE: 04/19/2018 SUBJECTIVE: Mr. Houston is doing well today. OBJECTIVE: VITAL SIGNS: 98.5 degrees, heart rate 105, respiration rate 16. PULMONARY: Clear to auscultation. CARDIAC: Regular rate and rhythm without murmur or gallop. ABDOMEN: Slightly distended, protuberant, probably some ascites. EXTREMITIES: Unremarkable. GI: Gastric drainage 50 mL per 24 hours. JOSE CARLOS drainage 375 serosanguineous. LABORATORY DATA: This morning his hemoglobin was 7.9. He was given 2 units of blood and recheck is 10.4, white count 6.7 this evening. Platelet count was low to 47. He is given a platelet count and it was up to 65 this evening. PT 18, INR 1.6. Sodium 136, potassium 4.2, carbon dioxide 21, BUN 20, creatinine 0.97. ASSESSMENT AND PLAN: 1. Cirrhosis. 2. Perforated pyloric channel ulcer with a JOSE CARLOS drain. NG tube output is minimal. We will discontinu e the NG tube and he can have sips and chips. We will advance him to clear liquids in the morning. We will follow his hemoglobin. I have held his Lovenox and saline to allow diuresis.
[2018-04-20] MEDS: Albumin 25% 25 GM/100 ML BOT IVPB SCH (02:28)
[2018-04-20 03:43] LABS: ALT (SGPT) 33 U/L (8-55); AST (SGOT) 31 U/L (5-34); Albumin 4.2 g/dL (3.5-5.0); Alkaline Phosphatase 84 U/L (40-150); Anion Gap 12 mmol/L (10-20); BUN (Urea Nitrogen) 16 mg/dL (8.4-25.7); Calc. Creatinine Clearance 99 mL/min (70-130); Calcium 9.2 mg/dL (7.8-10.44); Carbon Dioxide 20 mmol/L (22-29); Chloride 109 mmol/L (98-107); Estimated GFR-MDRD Greater than 90; Globulin 2.4 g/dL (2.4-3.5); Glucose 132 mg/dL (70-105); Potassium 3.5 mmol/L (3.5-5.1); Protein, Total 6.6 g/dL (6.0-8.3); Sodium 137 mmol/L (136-145)
[2018-04-20 03:57] LABS: INR-International Normal Ratio 1.5; PTT 39.2 SEC (22.9-36.1); Prothrombin Time 18.4 SEC (12.0-14.7)
[2018-04-20 04:30] LABS: Band 12 % (5-11); Hemoglobin 9.6 g/dL (14.0-18.0); Lymphocytes 8 % (21-51); MDiff Complete? YES; Mean Corpuscular HGB CONC 36.5 g/dL (32.0-36.0); Mean Corpuscular Hemoglobin 32.5 pg (27.0-31.0); Mean Corpuscular Volume 88.9 fL (78.0-98.0); Mean Platelet Volume 7.9 fL (7.4-10.4); Monocytes 9 % (0-10); Neutrophil 71 % (42-75); PLT Morphology Comment Appears Decreased; Platelet Count 55 thou/uL (130-400); RBC Distribution Width 13.7 % (11.5-14.5); Red Blood Cell (RBC) Count 2.96 mill/uL (4.70-6.10); White Blood Cell (WBC) Count 4.3 thou/uL (4.8-10.8)
[2018-04-20] MEDS: Albuterol Sulfate 2.5 mg/3 ml Neb NEB SCH ×3 (07:26→19:22)
[2018-04-20] MEDS: Mometasone/Formoterol 120 PUFF INHALER INH SCH ×2 (07:29→19:25)
[2018-04-20] MEDS ORDERED: Furosemide 40 MG/4 ML VIAL SLOW IVP SCH (08:00)
[2018-04-20] MEDS ORDERED: PROVENTIL INHALER 6.7 G (200 INHALATIONS) INH PRN (08:03)
[2018-04-20] MEDS ORDERED: LACTULOSE 20 GM PO SCH (09:00)
[2018-04-20] MEDS ORDERED: Non-Formulary Item 1 EACH (Diphenhydramine Hcl [Diphenhydramine Hcl] 25 MG) PO SCH (09:00)
[2018-04-20] MEDS: Insulin NPH/Reg Insulin Hm 300 UNITS/3 ML VIAL SC SCH ×2 (09:22→21:49)
[2018-04-20] MEDS: Furosemide 40 MG TAB PO SCH ×2 (09:23→21:47)
[2018-04-20] MEDS: Pantoprazole 40 MG VIAL IVP SCH ×2 (09:23→21:46)
[2018-04-20] MEDS: diphenhydrAMINE 25 MG CAP PO SCH ×2 (09:24→21:47)
[2018-04-20] MEDS: Spironolactone 25 MG TAB PO SCH ×2 (09:24→21:46)
--- NOTE | 2018-04-20 11:09 | PDOC.PN ---
- Subjective Encounter Start Date: 04/20/18 Encounter Start Time: 08:20 pt has not passed gas, NG tube out, no fever - Objective MAR Reviewed: Yes Vital Signs & Weight: Vital Signs (12 hours) Temp Pulse Resp BP Pulse Ox 04/20/18 08:30 98.1 F 99 22 H 123/76 92 L 04/20/18 07:29 100 18 96 04/20/18 07:26 100 18 96 04/20/18 03:51 98.0 F 100 20 119/75 92 L 04/19/18 23:57 98.3 F 109 H 20 121/76 96 Most Recent Monitor Data Heart Rate from ECG 101 NIBP 96/51 NIBP BP-Mean 63 Respiration from ECG 21 SpO2 96 I&O: 04/19/18 04/20/18 04/21/18 06:59 06:59 06:59 Intake Total 2160 2535 Output Total 2065 2460 Balance 95 75 Result Diagrams: 04/20/18 02:40 04/20/18 02:40 Additional Labs: Accuchecks 04/20/18 04/20/18 04/19/18 04:58 00:03 20:56 POC Glucose 128 H 140 H 165 H 04/19/18 04/19/18 16:05 11:17 POC Glucose 158 H 244 H Phys Exam - Physical Examination Constitutional: NAD HEENT: PERRLA, moist MMs, sclera anicteric Neck: no JVD, supple Respiratory: no wheezing, no rales, no rhonchi Cardiovascular: RRR, no significant murmur, no rub Gastrointestinal: soft surgical site with dressing Musculoskeletal: no edema, pulses present Neurological: non-focal, normal sensation, moves all 4 limbs Lymphatic: no nodes Psychiatric: normal affect, A&O x 3 Skin: no rash, normal turgor Dx/Plan (1) Acute abdomen Code(s): R10.0 - ACUTE ABDOMEN Status: Acute Comment: due to 2 (2) Perforated abdominal viscus Code(s): [id number] - Status: Acute (3) S/P laparotomy Status: Acute Comment: for problem 1 (4) Abnormal LFTs Code(s): R94.5 - ABNORMAL RESULTS OF LIVER FUNCTION STUDIES Status: Chronic (5) Diastolic dysfunction Code(s): I51.9 - HEART DISEASE, UNSPECIFIED Status: Chronic (6) Pancytopenia Code(s): D61.818 - OTHER PANCYTOPENIA Status: Chronic (7) Thrombocytopenia Code(s): D69.6 - THROMBOCYTOPENIA, UNSPECIFIED Status: Chronic (8) Anxiety and depression Code(s): F41.9 - ANXIETY DISORDER, UNSPECIFIED; F32.9 - MAJOR DEPRESSIVE DISORDER, SINGLE EPISODE, UNSPECIFIED Status: Chronic (9) Asthma Code(s): J45.909 - UNSPECIFIED ASTHMA, UNCOMPLICATED Status: Chronic (10) Cirrhosis of liver Code(s): K74.60 - UNSPECIFIED CIRRHOSIS OF LIVER Status: Chronic Qualifiers: Hepatic cirrhosis type: unspecified biliary cirrhosis Qualified Code(s): K74.5 - Biliary cirrhosis, unspecified (11) Diabetes type 2, controlled Code(s): E11.9 - TYPE 2 DIABETES MELLITUS WITHOUT COMPLICATIONS Status: Chronic (12) Dyslipidemia Code(s): E78.5 - HYPERLIPIDEMIA, UNSPECIFIED Status: Chronic (13) Hypertension Code(s): I10 - ESSENTIAL (PRIMARY) HYPERTENSION Status: Chronic (14) Acute kidney failure Status: Resolved (15) Hypokalemia Code(s): E87.6 - HYPOKALEMIA Status: Resolved (16) Hyponatremia Code(s): E87.1 - HYPO-OSMOLALITY AND HYPONATREMIA Status: Resolved (17) Wound infection Code(s): T14.8XXA - OTHER INJURY OF UNSPECIFIED BODY REGION, INITIAL ENCOUNTER; L08.9 - LOCAL INFECTION OF THE SKIN AND SUBCUTANEOUS TISSUE, UNSP Status: Acute Comment: over scalp with staph (18) Ileus following gastrointestinal surgery Code(s): K91.30 - POSTPROC INTESTINAL OBST, UNSP TO PARTIAL VERSUS COMPLETE Status: Acute (19) Anemia due to acute blood loss Code(s): D62 - ACUTE POSTHEMORRHAGIC ANEMIA Status: Acute - Plan cont current plan of care, continue antibiotics * diet as per primary team * medication reviewed as below * symptomatic treatment * continue vancomycin and zosyn. * agree with jude * BALWINDER IVF * wound care Review of Systems - Review of Systems ENT: negative: Ear Pain, Ear Discharge, Nose Pain, Nose Discharge, Nose Congestion, Mouth Pain, Mouth Swelling, Throat Pain, Throat Swelling, Other Respiratory: negative: Cough, Dry, Shortness of Breath, Hemoptysis, SOB with Excertion, Pleuritic Pain, Sputum, Wheezing Cardiovascular: negative: chest pain, palpitations, orthopnea, paroxysmal nocturnal dyspnea, edema, light headedness, other Gastrointestinal: Abdominal Pain. negative: Nausea, Vomiting, Diarrhea, Constipation, Melena, Hematochezia, Other Genitourinary: negative: Dysuria, Frequency, Incontinence, Hematuria, Retention , Other Musculoskeletal: negative: Neck Pain, Shoulder Pain, Arm Pain, Back Pain, Hand Pain, Leg Pain, Foot Pain, Other Skin: negative: Rash, Lesions, Missael, Bruising, Other - Medications/Allergies Allergies/Adverse Reactions: Allergies Allergy/AdvReac Type Severity Reaction Status Date / Time No Known Drug Allergies Allergy Verified 04/18/18 19:40 Medications: Current Medications Albuterol Sulfate (Ventolin) 2.5 mg NEB [id number] [facility] Last Admin: 04/20/18 07:26 Dose: 2.5 mg Albuterol Sulfate (Proventil Hfa) 2 puff INH Q6H PRN PRN Reason: SOB &/or Wheezing Artificial Tears (Tears Naturale) 0 drop EA EYE PRN PRN PRN Reason: Dry Eyes Beclomethasone Dipropionate (Qvar) 1 puff IH BID-RT [facility] Dextrose/Water (Dextrose 50%) 25 gm SLOW IVP PRN PRN PRN Reason: Hypoglycemia Diphenhydramine HCl (Benadryl) 25 mg PO BID [facility] Last Admin: 04/20/18 09:24 Dose: 25 mg Furosemide (Lasix) 40 mg PO BID [facility] Last Admin: 04/20/18 09:23 Dose: 40 mg Glucagon (Glucagon) 1 mg IM PRN PRN PRN Reason: Hypoglycemia Hydralazine HCl (Apresoline) 10 mg SLOW IVP Q4H PRN PRN Reason: Systolic BP > 180 Dextrose/Water (D5w) 1,000 mls @ 0 mls/hr IV .Q0M PRN; As Directed PRN Reason: Hypoglycemia Piperacillin Sod/Tazobactam Sod 3.375 gm/ Miscellaneous Medication 1 each/ Sodium Chloride 100 mls @ 200 mls/hr IVPB Q6HR [facility] Last Admin: 04/20/18 05:41 Dose: 100 mls Sodium Chloride (Normal Saline 0.9%) 1,000 mls @ 0 mls/hr IV .Q0M [facility] PRN Reason: KVO Last Admin: 04/19/18 18:44 Dose: 1,000 mls Insulin Human Isoph/Insulin Regular (Humulin 70/30) 10 units SC BID [facility] Last Admin: 04/20/18 09:22 Dose: 10 unit Insulin Human Lispro (Humalog) 0 units SC .AGGRESSIVE SLIDING PRN PRN Reason: Aggressive Correctional Scale Last Admin: 04/19/18 18:31 Dose: 3 unit Lactulose (Lactulose) 20 gm PO TID [facility] Last Admin: 04/20/18 09:22 Dose: 20 gm Mineral Oil/White Petrolatum (Eucerin Cream) 0 gm TOP BIDPRN PRN PRN Reason: Dry Skin Miscellaneous Medication (Pharmacy To Dose) 0 each IVPB ASDIR PRN PRN Reason: Pharmacy to Dose VANCOMYCIN Mometasone Furoate/Formoterol Fumar (Dulera 100 Mcg/5 Mcg Inhaler) 1 puff INH BID-RT [facility] Last Admin: 04/20/18 07:29 Dose: 1 puff Morphine Sulfate (Morphine) 2 mg SLOW IVP Q2H PRN PRN Reason: Mild Pain (1-3) Last Admin: 04/19/18 14:42 Dose: 2 mg Morphine Sulfate (Morphine Sulfate) 4 mg SLOW IVP Q2H PRN PRN Reason: Moderate Pain (4-6) Last Admin: 04/20/18 09:35 Dose: 4 mg Ondansetron HCl (Zofran) 4 mg IVP Q6H PRN PRN Reason: Nausea/Vomiting Pantoprazole Sodium (Protonix) 40 mg IVP Q12HR [facility] Last Admin: 04/20/18 09:23 Dose: 40 mg Phenol (Chloraseptic [place] 180 Ml Bot) 0 ml PO PRN PRN PRN Reason: Sore Throat Sodium Chloride (Flush - Normal Saline) 10 ml IVF PRN PRN PRN Reason: Saline Flush Sodium Chloride (Flush - Normal Saline) 10 ml IV Q12HR [facility] Last Admin: 04/20/18 09:23 Dose: 10 ml Sodium Chloride ([place] Nasal [place] 0.65%) 0 ml EA NARE QIDPRN PRN PRN Reason: Nasal Congestion Spironolactone (Aldactone) 100 mg PO BID [facility] Last Admin: 04/20/18 09:24 Dose: 100 mg Triamcinolone Acetonide (Kenalog 0.1% Ointment) 0 gm TOP BID [facility]
[2018-04-20] MEDS: HumaLOG 300 UNITS/3 ML VIAL SC PRN (17:52)
--- NOTE | 2018-04-20 18:55 | PRG ---
DATE OF SERVICE: 04/20/2018 SUBJECTIVE: Adria Houston is doing well after 04/18/2018, Arianna pyloroplasty omental pa tch for perforated pyloric channel ulcer. This morning, his hemoglobin is 9.6.: White count 4.3. B asic metabolic profile is unremarkable. Accu-Cheks are acceptable. Bilirubin is up to 6. AST, ALT, alkaline phosphatase are normal. OBJECTIVE: LUNGS: Clear to auscultation. CARDIAC: Regular rate and rhythm without murmur or gallop. ABDOMEN: Soft, distended, positive fluid wave. JOSE CARLOS drainage serous 585 for 24 hours. ASSESSMENT AND PLAN: 1. Cirrhosis, ascites. We will plan Lasix, minimize his IV fluid. Resume his outpatient medication s. 2. Perforated pyloric channel ulcer. Continue fluids. We will probably remove the drain tomorrow. 3. Needs to increase activity and mobility and walk outside the room. 4. Diabetes mellitus type 2. 5. Hypertension. 6. Elevated bilirubin, probably related from this acute event and peritonitis.
[2018-04-20] MEDS: Beclomethasone 80 mcg 120 PUFF/8.7 GM AER IH SCH (19:25)
[2018-04-21] MEDS: Piperacillin/Tazobactam 3.375 GM, Admixture Fee 1 EACH in Sodium Chloride 0.9% 100 ML IVPB SCH ×5 (00:14→23:54)
[2018-04-21] MEDS: Albuterol Sulfate 2.5 mg/3 ml Neb NEB SCH ×4 (00:58→20:05)
[2018-04-21 06:16] LABS: #Eosinphils 0.1 thou/uL (0.0-0.7); #Lymphocytes 0.3 thou/uL (1.20-3.40); #Neutrophils 6.6 thou/uL (1.40-6.50); %Basophils 0.2 % (0.0-1.0); %Eosinophils 1.1 % (0.0-10.0); %Lymphocytes 3.8 % (21.0-51.0); %Monocytes 12.9 % (0.0-10.0); Hemoglobin 11.4 g/dL (14.0-18.0); Mean Corpuscular HGB CONC 35.5 g/dL (32.0-36.0); Mean Corpuscular Hemoglobin 31.4 pg (27.0-31.0); Mean Corpuscular Volume 88.6 fL (78.0-98.0); Mean Platelet Volume 7.4 fL (7.4-10.4); Platelet Count 90 thou/uL (130-400); RBC Distribution Width 13.8 % (11.5-14.5); Red Blood Cell (RBC) Count 3.64 mill/uL (4.70-6.10); White Blood Cell (WBC) Count 8.1 thou/uL (4.8-10.8)
[2018-04-21 06:24] LABS: ALT (SGPT) 34 U/L (8-55); AST (SGOT) 38 U/L (5-34); Albumin 4.2 g/dL (3.5-5.0); Alkaline Phosphatase 93 U/L (40-150); Anion Gap 14 mmol/L (10-20); BUN (Urea Nitrogen) 12 mg/dL (8.4-25.7); Bilirubin, Total 7.4 mg/dL (0.2-1.2); Calc. Creatinine Clearance 84 mL/min (70-130); Calcium 9.6 mg/dL (7.8-10.44); Carbon Dioxide 23 mmol/L (22-29); Chloride 101 mmol/L (98-107); Estimated GFR-MDRD 82; Globulin 2.8 g/dL (2.4-3.5); Glucose 171 mg/dL (70-105); Sodium 135 mmol/L (136-145)
[2018-04-21] MEDS: HumaLOG 300 UNITS/3 ML VIAL SC PRN ×2 (07:43→17:23)
[2018-04-21] MEDS: Mometasone/Formoterol 120 PUFF INHALER INH SCH ×2 (08:26→20:05)
[2018-04-21] MEDS: Beclomethasone 80 mcg 120 PUFF/8.7 GM AER IH SCH ×2 (08:28→20:13)
[2018-04-21] MEDS: Insulin NPH/Reg Insulin Hm 300 UNITS/3 ML VIAL SC SCH ×2 (09:12→22:09)
[2018-04-21] MEDS: diphenhydrAMINE 25 MG CAP PO SCH ×2 (09:14→22:01)
[2018-04-21] MEDS: Pantoprazole 40 MG VIAL IVP SCH ×2 (09:14→22:01)
[2018-04-21] MEDS: Spironolactone 25 MG TAB PO SCH ×2 (09:14→22:00)
[2018-04-21] MEDS: Furosemide 40 MG TAB PO SCH ×2 (09:14→22:00)
--- NOTE | 2018-04-21 12:01 | PDOC.PN ---
- Subjective Encounter Start Date: 04/21/18 Encounter Start Time: 08:50 Patient seen and examined. No new complaints. No overnight events - Objective MAR Reviewed: Yes Vital Signs & Weight: Vital Signs (12 hours) Temp Pulse Resp BP Pulse Ox 04/21/18 08:25 96 16 94 L 04/21/18 08:00 97.7 F 91 20 116/79 100 04/21/18 03:56 98.8 F 96 20 131/78 94 L 04/21/18 00:58 88 16 96 Most Recent Monitor Data Heart Rate from ECG 101 NIBP 96/51 NIBP BP-Mean 63 Respiration from ECG 21 SpO2 96 I&O: 04/20/18 04/21/18 04/22/18 06:59 06:59 06:59 Intake Total 2535 2270 Output Total 2460 4090 Balance 75 -1820 Result Diagrams: 04/21/18 06:06 04/21/18 06:06 Additional Labs: Accuchecks 04/21/18 04/21/18 04/20/18 11:31 06:29 21:17 POC Glucose 142 H 176 H 180 H 04/20/18 04/20/18 16:11 11:51 POC Glucose 217 H 137 H Phys Exam - Physical Examination Constitutional: NAD HEENT: PERRLA, moist MMs, sclera anicteric Neck: no JVD, supple Respiratory: no wheezing, no rales, no rhonchi Cardiovascular: RRR, no significant murmur, no rub Gastrointestinal: soft, no distention surgical site with dressing Musculoskeletal: no edema, pulses present Neurological: non-focal, normal sensation Lymphatic: no nodes Psychiatric: normal affect Skin: no rash, normal turgor Dx/Plan (1) Acute abdomen Code(s): R10.0 - ACUTE ABDOMEN Status: Acute Comment: due to 2 (2) Perforated abdominal viscus Code(s): [id number] - Status: Acute (3) S/P laparotomy Status: Acute Comment: for problem 1 (4) Abnormal LFTs Code(s): R94.5 - ABNORMAL RESULTS OF LIVER FUNCTION STUDIES Status: Chronic (5) Diastolic dysfunction Code(s): I51.9 - HEART DISEASE, UNSPECIFIED Status: Chronic (6) Pancytopenia Code(s): D61.818 - OTHER PANCYTOPENIA Status: Chronic (7) Thrombocytopenia Code(s): D69.6 - THROMBOCYTOPENIA, UNSPECIFIED Status: Chronic (8) Anxiety and depression Code(s): F41.9 - ANXIETY DISORDER, UNSPECIFIED; F32.9 - MAJOR DEPRESSIVE DISORDER, SINGLE EPISODE, UNSPECIFIED Status: Chronic (9) Asthma Code(s): J45.909 - UNSPECIFIED ASTHMA, UNCOMPLICATED Status: Chronic (10) Cirrhosis of liver Code(s): K74.60 - UNSPECIFIED CIRRHOSIS OF LIVER Status: Chronic Qualifiers: Hepatic cirrhosis type: unspecified biliary cirrhosis Qualified Code(s): K74.5 - Biliary cirrhosis, unspecified (11) Diabetes type 2, controlled Code(s): E11.9 - TYPE 2 DIABETES MELLITUS WITHOUT COMPLICATIONS Status: Chronic (12) Dyslipidemia Code(s): E78.5 - HYPERLIPIDEMIA, UNSPECIFIED Status: Chronic (13) Hypertension Code(s): I10 - ESSENTIAL (PRIMARY) HYPERTENSION Status: Chronic (14) Acute kidney failure Status: Resolved (15) Hypokalemia Code(s): E87.6 - HYPOKALEMIA Status: Resolved (16) Hyponatremia Code(s): E87.1 - HYPO-OSMOLALITY AND HYPONATREMIA Status: Resolved (17) Wound infection Code(s): T14.8XXA - OTHER INJURY OF UNSPECIFIED BODY REGION, INITIAL ENCOUNTER; L08.9 - LOCAL INFECTION OF THE SKIN AND SUBCUTANEOUS TISSUE, UNSP Status: Acute Comment: over scalp with staph (18) Ileus following gastrointestinal surgery Code(s): K91.30 - POSTPROC INTESTINAL OBST, UNSP TO PARTIAL VERSUS COMPLETE Status: Acute (19) Anemia due to acute blood loss Code(s): D62 - ACUTE POSTHEMORRHAGIC ANEMIA Status: Acute - Plan cont current plan of care, continue antibiotics * vancomycin discontinued ?? ( he has mrsa of scalp wound) * continue zosyn * diet as per surgeon, does not ready for advancing diet yet. * medication reviewed as below * symptomatic treatment Review of Systems - Review of Systems ENT: negative: Ear Pain, Ear Discharge, Nose Pain, Nose Discharge, Nose Congestion, Mouth Pain, Mouth Swelling, Throat Pain, Throat Swelling, Other Respiratory: negative: Cough, Dry, Shortness of Breath, Hemoptysis, SOB with Excertion, Pleuritic Pain, Sputum, Wheezing Cardiovascular: negative: chest pain, palpitations, orthopnea, paroxysmal nocturnal dyspnea, edema, light headedness, other Gastrointestinal: negative: Nausea, Vomiting, Abdominal Pain, Diarrhea, Constipation, Melena, Hematochezia, Other Genitourinary: negative: Dysuria, Frequency, Incontinence, Hematuria, Retention , Other Musculoskeletal: negative: Neck Pain, Shoulder Pain, Arm Pain, Back Pain, Hand Pain, Leg Pain, Foot Pain, Other Skin: negative: Rash, Lesions, Missael, Bruising, Other - Medications/Allergies Allergies/Adverse Reactions: Allergies Allergy/AdvReac Type Severity Reaction Status Date / Time No Known Drug Allergies Allergy Verified 04/18/18 19:40 Medications: Current Medications Albuterol Sulfate (Ventolin) 2.5 mg NEB [id number] Last Admin: 04/21/18 08:25 Dose: 2.5 mg Albuterol Sulfate (Proventil Hfa) 2 puff INH Q6H PRN PRN Reason: SOB &/or Wheezing Artificial Tears (Tears Naturale) 0 drop EA EYE PRN PRN PRN Reason: Dry Eyes Beclomethasone Dipropionate (Qvar) 1 puff IH BID-RT [facility] Last Admin: 04/21/18 08:28 Dose: Not Given Dextrose/Water (Dextrose 50%) 25 gm SLOW IVP PRN PRN PRN Reason: Hypoglycemia Diphenhydramine HCl (Benadryl) 25 mg PO BID [facility] Last Admin: 04/21/18 09:14 Dose: 25 mg Furosemide (Lasix) 40 mg PO BID [facility] Last Admin: 04/21/18 09:14 Dose: 40 mg Glucagon (Glucagon) 1 mg IM PRN PRN PRN Reason: Hypoglycemia Hydralazine HCl (Apresoline) 10 mg SLOW IVP Q4H PRN PRN Reason: Systolic BP > 180 Dextrose/Water (D5w) 1,000 mls @ 0 mls/hr IV .Q0M PRN; As Directed PRN Reason: Hypoglycemia Piperacillin Sod/Tazobactam Sod 3.375 gm/ Miscellaneous Medication 1 each/ Sodium Chloride 100 mls @ 200 mls/hr IVPB Q6HR [facility] Last Admin: 04/21/18 05:47 Dose: 100 mls Sodium Chloride (Normal Saline 0.9%) 1,000 mls @ 0 mls/hr IV .Q0M SHERRIE PRN Reason: KVO Last Admin: 04/19/18 18:44 Dose: 1,000 mls Potassium Chloride 20 meq/ (Device) 200 mls @ 100 mls/hr IVPB NOW SHERRIE Insulin Human Isoph/Insulin Regular (Humulin 70/30) 10 units SC BID [facility] Last Admin: 04/21/18 09:12 Dose: 10 unit Insulin Human Lispro (Humalog) 0 units SC .AGGRESSIVE SLIDING PRN PRN Reason: Aggressive Correctional Scale Last Admin: 04/21/18 07:43 Dose: 3 unit Lactulose (Lactulose) 20 gm PO TID [facility] Last Admin: 04/21/18 09:15 Dose: Not Given Mineral Oil/White Petrolatum (Eucerin Cream) 0 gm TOP BIDPRN PRN PRN Reason: Dry Skin Mometasone Furoate/Formoterol Fumar (Dulera 100 Mcg/5 Mcg Inhaler) 1 puff INH BID-RT [facility] Last Admin: 04/21/18 08:26 Dose: 1 puff Morphine Sulfate (Morphine) 2 mg SLOW IVP Q2H PRN PRN Reason: Mild Pain (1-3) Last Admin: 04/21/18 05:43 Dose: 2 mg Morphine Sulfate (Morphine Sulfate) 4 mg SLOW IVP Q2H PRN PRN Reason: Moderate Pain (4-6) Last Admin: 04/20/18 09:35 Dose: 4 mg Ondansetron HCl (Zofran) 4 mg IVP Q6H PRN PRN Reason: Nausea/Vomiting Pantoprazole Sodium (Protonix) 40 mg IVP Q12HR [facility] Last Admin: 04/21/18 09:14 Dose: 40 mg Phenol (Chloraseptic [place] 180 Ml Bot) 0 ml PO PRN PRN PRN Reason: Sore Throat Sodium Chloride (Flush - Normal Saline) 10 ml IVF PRN PRN PRN Reason: Saline Flush Sodium Chloride (Flush - Normal Saline) 10 ml IV Q12HR [facility] Last Admin: 04/21/18 09:15 Dose: 10 ml Sodium Chloride ([place] Nasal [place] 0.65%) 0 ml EA NARE QIDPRN PRN PRN Reason: Nasal Congestion Spironolactone (Aldactone) 100 mg PO BID [facility] Last Admin: 04/21/18 09:14 Dose: 100 mg Triamcinolone Acetonide (Kenalog 0.1% Ointment) 0 gm TOP BID [facility] Last Admin: 04/20/18 21:49 Dose: Not Given
[2018-04-21] MEDS ORDERED: Potassium Chloride 20 MEQ in Premix Bag 1 BAG IVPB SCH (12:30)
--- NOTE | 2018-04-21 21:56 | PRG ---
DATE OF SERVICE: 04/21/2018 SUBJECTIVE: Mr. Houston is doing well today, he was a walk-in room. He has an emesis bag. He has n o vomited. He does have some nausea. OBJECTIVE: VITAL SIGNS: 97.9 degrees, 90, 20, and 117/80. LUNGS: Clear to auscultation. CARDIAC: Regular rate and rhythm without murmur or gallop. ABDOMEN: Soft, distended, positive fluid wave. Surgical wounds look good. JOSE CARLOS drain serosanguineous . LABORATORY DATA: This morning, his white count is 4, hemoglobin 9.6, platelet count 55,000. Sodium 135, potassium 3.0, BUN 12, creatinine 0.94. JOSE CARLOS drainage 540 last 24 hours that he reports the nurse s emptied every 2 to 3 hours, patient is voiding. He has had copious amounts of urine recorded by nu rses 3.5 liters over the last 24 hours. He had Lasix yesterday and today. ASSESSMENT AND PLAN: 1. Cirrhosis with ascites. Continue diuresis, minimize IV fluids, replace potassium. 2. Awaiting better GI function. Continue clear liquids until nausea resolves. Hopefully, we can st art him on full liquids tomorrow if his nausea resolves.
[2018-04-22] MEDS: Albuterol Sulfate 2.5 mg/3 ml Neb NEB SCH ×4 (01:06→19:03)
[2018-04-22] MEDS: Ondansetron HCl/PF 4 MG/2 ML Vial IVP PRN ×3 (02:32→18:10)
[2018-04-22] MEDS: Piperacillin/Tazobactam 3.375 GM, Admixture Fee 1 EACH in Sodium Chloride 0.9% 100 ML IVPB SCH ×3 (06:34→17:22)
[2018-04-22] MEDS: HumaLOG 300 UNITS/3 ML VIAL SC PRN ×3 (06:36→16:39)
[2018-04-22] MEDS: Mometasone/Formoterol 120 PUFF INHALER INH SCH ×2 (07:43→19:06)
[2018-04-22] MEDS: Beclomethasone 80 mcg 120 PUFF/8.7 GM AER IH SCH ×2 (07:44→19:06)
[2018-04-22] MEDS: diphenhydrAMINE 25 MG CAP PO SCH ×2 (08:23→22:17)
[2018-04-22] MEDS: Spironolactone 25 MG TAB PO SCH ×2 (08:24→22:19)
[2018-04-22] MEDS: Furosemide 40 MG TAB PO SCH ×2 (08:24→22:18)
[2018-04-22] MEDS: Pantoprazole 40 MG VIAL IVP SCH ×2 (08:24→22:18)
[2018-04-22] MEDS: Insulin NPH/Reg Insulin Hm 300 UNITS/3 ML VIAL SC SCH ×2 (08:33→22:20)
[2018-04-22 09:28] LABS: #Eosinphils 0.2 thou/uL (0.0-0.7); #Lymphocytes 0.4 thou/uL (1.20-3.40); #Monocytes 1.6 thou/uL (0.11-0.59); #Neutrophils 11.5 thou/uL (1.40-6.50); %Eosinophils 1.2 % (0.0-10.0); %Monocytes 11.4 % (0.0-10.0); %Neutrophils 84.3 % (42.0-75.0); Hemoglobin 13.4 g/dL (14.0-18.0); Mean Corpuscular HGB CONC 34.8 g/dL (32.0-36.0); Mean Corpuscular Volume 89.2 fL (78.0-98.0); Mean Platelet Volume 7.5 fL (7.4-10.4); Platelet Count 136 thou/uL (130-400); RBC Distribution Width 14.3 % (11.5-14.5); Red Blood Cell (RBC) Count 4.31 mill/uL (4.70-6.10); White Blood Cell (WBC) Count 13.6 thou/uL (4.8-10.8)
[2018-04-22 09:49] LABS: ALT (SGPT) 31 U/L (8-55); AST (SGOT) 32 U/L (5-34); Albumin 3.9 g/dL (3.5-5.0); Alkaline Phosphatase 93 U/L (40-150); Anion Gap 15 mmol/L (10-20); BUN (Urea Nitrogen) 16 mg/dL (8.4-25.7); Bilirubin, Total 7.3 mg/dL (0.2-1.2); Calc. Creatinine Clearance 87 mL/min (70-130); Calcium 9.5 mg/dL (7.8-10.44); Carbon Dioxide 23 mmol/L (22-29); Chloride 100 mmol/L (98-107); Estimated GFR-MDRD 86; Glucose 198 mg/dL (70-105); Potassium 3.2 mmol/L (3.5-5.1); Protein, Total 6.9 g/dL (6.0-8.3); Sodium 135 mmol/L (136-145)
--- NOTE | 2018-04-22 10:20 | PDOC.PN ---
- Subjective Encounter Start Date: 04/22/18 Encounter Start Time: 09:45 Patient seen and examined. No new complaints. No overnight events - Objective MAR Reviewed: Yes Vital Signs & Weight: Vital Signs (12 hours) Temp Pulse Resp BP Pulse Ox 04/22/18 08:24 98.3 F 98 20 97 04/22/18 07:41 92 20 97 04/22/18 07:20 98.3 F 98 18 140/96 H 99 04/22/18 04:23 98 F 98 16 130/79 98 04/22/18 01:06 95 04/21/18 23:29 98.4 F 102 H 16 136/86 96 Most Recent Monitor Data Heart Rate from ECG 101 NIBP 96/51 NIBP BP-Mean 63 Respiration from ECG 21 SpO2 96 I&O: 04/21/18 04/22/18 04/23/18 06:59 06:59 06:59 Intake Total 2270 2000 Output Total 4090 2450 Balance -1820 -450 Result Diagrams: 04/22/18 09:23 04/22/18 09:23 Additional Labs: Accuchecks 04/21/18 04/21/18 04/21/18 20:52 16:34 11:31 POC Glucose 215 H 227 H 142 H Phys Exam - Physical Examination Constitutional: NAD HEENT: PERRLA, moist MMs, sclera anicteric Neck: no JVD, supple Respiratory: no wheezing, no rales, no rhonchi central line on left side of chest Cardiovascular: RRR, no significant murmur, no rub Gastrointestinal: soft, non-tender, no distention, positive bowel sounds surgical site with dressing, kala drain + Musculoskeletal: no edema, pulses present Neurological: non-focal, normal sensation Lymphatic: no nodes Psychiatric: normal affect Skin: no rash, normal turgor Dx/Plan (1) Acute abdomen Code(s): R10.0 - ACUTE ABDOMEN Status: Acute Comment: due to 2 (2) Perforated abdominal viscus Code(s): [id number] - Status: Acute (3) S/P laparotomy Status: Acute Comment: for problem 1 (4) Abnormal LFTs Code(s): R94.5 - ABNORMAL RESULTS OF LIVER FUNCTION STUDIES Status: Chronic (5) Diastolic dysfunction Code(s): I51.9 - HEART DISEASE, UNSPECIFIED Status: Chronic (6) Pancytopenia Code(s): D61.818 - OTHER PANCYTOPENIA Status: Chronic (7) Thrombocytopenia Code(s): D69.6 - THROMBOCYTOPENIA, UNSPECIFIED Status: Chronic (8) Anxiety and depression Code(s): F41.9 - ANXIETY DISORDER, UNSPECIFIED; F32.9 - MAJOR DEPRESSIVE DISORDER, SINGLE EPISODE, UNSPECIFIED Status: Chronic (9) Asthma Code(s): J45.909 - UNSPECIFIED ASTHMA, UNCOMPLICATED Status: Chronic (10) Cirrhosis of liver Code(s): K74.60 - UNSPECIFIED CIRRHOSIS OF LIVER Status: Chronic Qualifiers: Hepatic cirrhosis type: unspecified biliary cirrhosis Qualified Code(s): K74.5 - Biliary cirrhosis, unspecified (11) Diabetes type 2, controlled Code(s): E11.9 - TYPE 2 DIABETES MELLITUS WITHOUT COMPLICATIONS Status: Chronic (12) Dyslipidemia Code(s): E78.5 - HYPERLIPIDEMIA, UNSPECIFIED Status: Chronic (13) Hypertension Code(s): I10 - ESSENTIAL (PRIMARY) HYPERTENSION Status: Chronic (14) Acute kidney failure Status: Resolved (15) Hypokalemia Code(s): E87.6 - HYPOKALEMIA Status: Resolved (16) Hyponatremia Code(s): E87.1 - HYPO-OSMOLALITY AND HYPONATREMIA Status: Resolved (17) Wound infection Code(s): T14.8XXA - OTHER INJURY OF UNSPECIFIED BODY REGION, INITIAL ENCOUNTER; L08.9 - LOCAL INFECTION OF THE SKIN AND SUBCUTANEOUS TISSUE, UNSP Status: Acute Comment: over scalp with staph (18) Ileus following gastrointestinal surgery Code(s): K91.30 - POSTPROC INTESTINAL OBST, UNSP TO PARTIAL VERSUS COMPLETE Status: Acute (19) Anemia due to acute blood loss Code(s): D62 - ACUTE POSTHEMORRHAGIC ANEMIA Status: Acute - Plan cont current plan of care, continue antibiotics * continue wound care * medication reviewed as below * symptomatic treatment. * continue vancomycin and zosyn * diet as per primary team * ambulate as much as possible * KALA drain care as per primary team * pain controlled Review of Systems - Review of Systems Eyes: negative: Pain, Vision Change, Conjunctivae Inflammation, Eyelid Inflammation, Redness, Other ENT: negative: Ear Pain, Ear Discharge, Nose Pain, Nose Discharge, Nose Congestion, Mouth Pain, Mouth Swelling, Throat Pain, Throat Swelling, Other Respiratory: negative: Cough, Dry, Shortness of Breath, Hemoptysis, SOB with Excertion, Pleuritic Pain, Sputum, Wheezing Cardiovascular: negative: chest pain, palpitations, orthopnea, paroxysmal nocturnal dyspnea, edema, light headedness, other Gastrointestinal: negative: Nausea, Vomiting, Abdominal Pain, Diarrhea, Constipation, Melena, Hematochezia, Other Genitourinary: negative: Dysuria, Frequency, Incontinence, Hematuria, Retention , Other Musculoskeletal: negative: Neck Pain, Shoulder Pain, Arm Pain, Back Pain, Hand Pain, Leg Pain, Foot Pain, Other - Medications/Allergies Allergies/Adverse Reactions: Allergies Allergy/AdvReac Type Severity Reaction Status Date / Time No Known Drug Allergies Allergy Verified 04/18/18 19:40 Medications: Current Medications Albuterol Sulfate (Ventolin) 2.5 mg NEB [id number] Last Admin: 04/22/18 07:41 Dose: 2.5 mg Artificial Tears (Tears Naturale) 0 drop EA EYE PRN PRN PRN Reason: Dry Eyes Beclomethasone Dipropionate (Qvar) 1 puff IH BID-RT [facility] Last Admin: 04/22/18 07:44 Dose: Not Given Dextrose/Water (Dextrose 50%) 25 gm SLOW IVP PRN PRN PRN Reason: Hypoglycemia Diphenhydramine HCl (Benadryl) 25 mg PO BID [facility] Last Admin: 04/22/18 08:23 Dose: 25 mg Furosemide (Lasix) 40 mg PO BID [facility] Last Admin: 04/22/18 08:24 Dose: 40 mg Glucagon (Glucagon) 1 mg IM PRN PRN PRN Reason: Hypoglycemia Hydralazine HCl (Apresoline) 10 mg SLOW IVP Q4H PRN PRN Reason: Systolic BP > 180 Dextrose/Water (D5w) 1,000 mls @ 0 mls/hr IV .Q0M PRN; As Directed PRN Reason: Hypoglycemia Piperacillin Sod/Tazobactam Sod 3.375 gm/ Miscellaneous Medication 1 each/ Sodium Chloride 100 mls @ 200 mls/hr IVPB Q6HR [facility] Last Admin: 04/22/18 06:34 Dose: 100 mls Sodium Chloride (Normal Saline 0.9%) 1,000 mls @ 0 mls/hr IV .Q0M [facility] PRN Reason: KVO Last Admin: 04/19/18 18:44 Dose: 1,000 mls Insulin Human Isoph/Insulin Regular (Humulin 70/30) 10 units SC BID [facility] Last Admin: 04/22/18 08:33 Dose: 10 unit Insulin Human Lispro (Humalog) 0 units SC .AGGRESSIVE SLIDING PRN PRN Reason: Aggressive Correctional Scale Last Admin: 04/22/18 06:36 Dose: 6 unit Lactulose (Lactulose) 20 gm PO TID [facility] Last Admin: 04/22/18 08:25 Dose: Not Given Mineral Oil/White Petrolatum (Eucerin Cream) 0 gm TOP BIDPRN PRN PRN Reason: Dry Skin Miscellaneous Medication (Pharmacy To Dose) 1 each IVPB ONE PRN PRN Reason: Pharmacy to dose Mometasone Furoate/Formoterol Fumar (Dulera 100 Mcg/5 Mcg Inhaler) 1 puff INH BID-RT [facility] Last Admin: 04/22/18 07:43 Dose: 1 puff Morphine Sulfate (Morphine) 2 mg SLOW IVP Q2H PRN PRN Reason: Mild Pain (1-3) Last Admin: 04/22/18 06:34 Dose: 2 mg Morphine Sulfate (Morphine Sulfate) 4 mg SLOW IVP Q2H PRN PRN Reason: Moderate Pain (4-6) Last Admin: 04/20/18 09:35 Dose: 4 mg Ondansetron HCl (Zofran) 4 mg IVP Q6H PRN PRN Reason: Nausea/Vomiting Last Admin: 04/22/18 08:24 Dose: 4 mg Pantoprazole Sodium (Protonix) 40 mg IVP Q12HR [facility] Last Admin: 04/22/18 08:24 Dose: 40 mg Phenol (Chloraseptic [place] 180 Ml Bot) 0 ml PO PRN PRN PRN Reason: Sore Throat Sodium Chloride (Flush - Normal Saline) 10 ml IVF PRN PRN PRN Reason: Saline Flush Sodium Chloride (Flush - Normal Saline) 10 ml IV Q12HR [facility] Last Admin: 04/22/18 08:24 Dose: 10 ml Sodium Chloride ([place] Nasal [place] 0.65%) 0 ml EA NARE QIDPRN PRN PRN Reason: Nasal Congestion Spironolactone (Aldactone) 100 mg PO BID [facility] Last Admin: 04/22/18 08:24 Dose: 100 mg
[2018-04-22] MEDS ORDERED: Vancomycin HCl 1 GM in Premix Bag 1 BAG IVPB SCH (12:45)
[2018-04-22] MEDS ORDERED: Clotrimazole 1 % Cream 30 GM TUBE TOP PRN (15:56)
[2018-04-22] MEDS ORDERED: traMADol HCl 50 MG TAB PO PRN (15:58)
[2018-04-22] MEDS ORDERED: [UNRECOGNIZED DRUG - OTHER] IM SCH (16:00)
[2018-04-22] MEDS ORDERED: Potassium Chloride 20 MEQ TAB PO SCH (16:00)
--- NOTE | 2018-04-22 17:05 | PRG ---
DATE OF SERVICE: 04/22/2018 SUBJECTIVE: Mr. Houston is doing well today. He is not having nausea or vomiting. OBJECTIVE: VITAL SIGNS: 97.7 degrees, 88, 100, 136/84. His JOSE CARLOS drain has put out 1300 today, 540 last 24 hours. LUNGS: Clear to auscultation. CARDIAC: Regular rate and rhythm without murmur or gallop. ABDOMEN: Soft, less distended, less ascites, nontender. Midline wound looks good. Telfa yanet were removed. EXTREMITIES: Unremarkable. LABORATORY DATA: Hemoglobin 13, white count 13.6, potassium 3.2, sodium 135. ASSESSMENT AND PLAN: The patient is actually doing better. We will plan advancement to full liquid diet. If he does well over the weekend, we will plan transfer back to nursing home. We will remove his JOSE CARLOS drain today.
[2018-04-22] MEDS: Insulin Regular 300 UNITS/3 ML VIAL SC SCH (17:23)
[2018-04-22] MEDS ORDERED: [UNRECOGNIZED DRUG - OTHER] SLOW IVP SCH (17:45)
[2018-04-22] MEDS ORDERED: [UNRECOGNIZED DRUG - OTHER] RC SCH (21:00)
[2018-04-22] MEDS: traMADol HCl 50 MG TAB PO PRN (22:17)
[2018-04-23] MEDS: Piperacillin/Tazobactam 3.375 GM, Admixture Fee 1 EACH in Sodium Chloride 0.9% 100 ML IVPB SCH ×4 (00:25→18:42)
[2018-04-23] MEDS: Vancomycin HCl 1 GM in Premix Bag 1 BAG IVPB SCH ×2 (00:55→12:48)
[2018-04-23] MEDS: Albuterol Sulfate 2.5 mg/3 ml Neb NEB SCH ×4 (00:58→19:47)
[2018-04-23] MEDS: traMADol HCl 50 MG TAB PO PRN ×3 (05:48→22:15)
[2018-04-23 06:11] LABS: #Eosinphils 0.4 thou/uL (0.0-0.7); #Lymphocytes 0.7 thou/uL (1.20-3.40); #Monocytes 2.3 thou/uL (0.11-0.59); #Neutrophils 12.3 thou/uL (1.40-6.50); %Basophils 0.1 % (0.0-1.0); %Eosinophils 2.7 % (0.0-10.0); %Lymphocytes 4.1 % (21.0-51.0); %Monocytes 14.4 % (0.0-10.0); %Neutrophils 78.7 % (42.0-75.0); Hemoglobin 12.8 g/dL (14.0-18.0); Mean Corpuscular HGB CONC 35.1 g/dL (32.0-36.0); Mean Corpuscular Volume 88.2 fL (78.0-98.0); Mean Platelet Volume 6.9 fL (7.4-10.4); Platelet Count 142 thou/uL (130-400); RBC Distribution Width 14.5 % (11.5-14.5); Red Blood Cell (RBC) Count 4.14 mill/uL (4.70-6.10); White Blood Cell (WBC) Count 15.7 thou/uL (4.8-10.8)
[2018-04-23 06:32] LABS: ALT (SGPT) 29 U/L (8-55); AST (SGOT) 30 U/L (5-34); Albumin 3.8 g/dL (3.5-5.0); Alkaline Phosphatase 93 U/L (40-150); Anion Gap 13 mmol/L (10-20); BUN (Urea Nitrogen) 18 mg/dL (8.4-25.7); Bilirubin, Total 6.7 mg/dL (0.2-1.2); Calc. Creatinine Clearance 71 mL/min (70-130); Carbon Dioxide 26 mmol/L (22-29); Chloride 98 mmol/L (98-107); Estimated GFR-MDRD 68; Globulin 2.9 g/dL (2.4-3.5); Glucose 205 mg/dL (70-105); Potassium 3.7 mmol/L (3.5-5.1); Protein, Total 6.7 g/dL (6.0-8.3); Sodium 133 mmol/L (136-145)
[2018-04-23] MEDS: Mometasone/Formoterol 120 PUFF INHALER INH SCH ×2 (06:34→19:47)
[2018-04-23] MEDS: Beclomethasone 80 mcg 120 PUFF/8.7 GM AER IH SCH ×2 (06:34→19:47)
[2018-04-23] MEDS: Pantoprazole 40 MG VIAL IVP SCH ×2 (09:19→22:15)
[2018-04-23] MEDS: Polyethylene Glycol 3350 17 GM Packet PO SCH (09:19)
[2018-04-23] MEDS: Spironolactone 25 MG TAB PO SCH ×2 (09:19→22:48)
[2018-04-23] MEDS: Aspirin 81 mg Enteric Coated Tablet PO SCH (09:19)
[2018-04-23] MEDS: diphenhydrAMINE 25 MG CAP PO SCH ×2 (09:20→22:15)
[2018-04-23] MEDS: NPH, Human Insulin Isophane 300 UNIT/3 ML VIAL SC SCH (09:20)
[2018-04-23] MEDS: Furosemide 40 MG TAB PO SCH ×2 (09:22→22:15)
[2018-04-23] MEDS: Insulin NPH/Reg Insulin Hm 300 UNITS/3 ML VIAL SC SCH (09:23)
[2018-04-23] MEDS: Insulin Regular 300 UNITS/3 ML VIAL SC SCH (09:23)
--- NOTE | 2018-04-23 10:36 | PDOC.PN ---
- Subjective Encounter Start Date: 04/23/18 Encounter Start Time: 08:20 Patient seen and examined. No new complaints. No overnight events his drain site is draining ascites fluid - Objective MAR Reviewed: Yes Vital Signs & Weight: Vital Signs (12 hours) Temp Pulse Resp BP BP Pulse Ox 04/23/18 07:31 97.5 F L 107 H 20 139/84 99 04/23/18 06:36 95 16 95 04/23/18 06:34 95 16 95 04/23/18 04:00 98 F 100 16 135/80 94 L 04/23/18 00:58 89 16 100 04/22/18 23:59 97.9 F 69 16 118/75 97 Most Recent Monitor Data Heart Rate from ECG 101 NIBP 96/51 NIBP BP-Mean 63 Respiration from ECG 21 SpO2 96 I&O: 04/22/18 04/23/18 04/24/18 06:59 06:59 06:59 Intake Total 1999 1290 Output Total 2450 2035 Balance -450 -745 Result Diagrams: 04/22/18 09:23 04/23/18 06:04 Additional Labs: Accuchecks 04/23/18 04/22/18 04/22/18 06:46 20:34 15:35 POC Glucose 189 H 239 H 183 H 04/22/18 04/22/18 11:34 06:00 POC Glucose 157 H 208 H Phys Exam - Physical Examination Constitutional: NAD HEENT: PERRLA, moist MMs icterus+ Neck: no JVD, supple Respiratory: no wheezing, no rales, no rhonchi Cardiovascular: RRR, no significant murmur, no rub Gastrointestinal: soft, no distention, positive bowel sounds ascites+, surgical site with dressing Musculoskeletal: no edema, pulses present Neurological: non-focal, normal sensation Lymphatic: no nodes Psychiatric: normal affect, A&O x 3 Skin: no rash, normal turgor Dx/Plan (1) Acute abdomen Code(s): R10.0 - ACUTE ABDOMEN Status: Acute Comment: due to 2 (2) Perforated abdominal viscus Code(s): [id number] - Status: Acute (3) S/P laparotomy Status: Acute Comment: for problem 1 (4) Abnormal LFTs Code(s): R94.5 - ABNORMAL RESULTS OF LIVER FUNCTION STUDIES Status: Chronic (5) Diastolic dysfunction Code(s): I51.9 - HEART DISEASE, UNSPECIFIED Status: Chronic (6) Pancytopenia Code(s): D61.818 - OTHER PANCYTOPENIA Status: Chronic (7) Thrombocytopenia Code(s): D69.6 - THROMBOCYTOPENIA, UNSPECIFIED Status: Chronic (8) Anxiety and depression Code(s): F41.9 - ANXIETY DISORDER, UNSPECIFIED; F32.9 - MAJOR DEPRESSIVE DISORDER, SINGLE EPISODE, UNSPECIFIED Status: Chronic (9) Asthma Code(s): J45.909 - UNSPECIFIED ASTHMA, UNCOMPLICATED Status: Chronic (10) Cirrhosis of liver Code(s): K74.60 - UNSPECIFIED CIRRHOSIS OF LIVER Status: Chronic Qualifiers: Hepatic cirrhosis type: unspecified biliary cirrhosis Qualified Code(s): K74.5 - Biliary cirrhosis, unspecified (11) Diabetes type 2, controlled Code(s): E11.9 - TYPE 2 DIABETES MELLITUS WITHOUT COMPLICATIONS Status: Chronic (12) Dyslipidemia Code(s): E78.5 - HYPERLIPIDEMIA, UNSPECIFIED Status: Chronic (13) Hypertension Code(s): I10 - ESSENTIAL (PRIMARY) HYPERTENSION Status: Chronic (14) Acute kidney failure Status: Resolved (15) Hypokalemia Code(s): E87.6 - HYPOKALEMIA Status: Resolved (16) Hyponatremia Code(s): E87.1 - HYPO-OSMOLALITY AND HYPONATREMIA Status: Resolved (17) Wound infection Code(s): T14.8XXA - OTHER INJURY OF UNSPECIFIED BODY REGION, INITIAL ENCOUNTER; L08.9 - LOCAL INFECTION OF THE SKIN AND SUBCUTANEOUS TISSUE, UNSP Status: Acute Comment: over scalp with staph (18) Ileus following gastrointestinal surgery Code(s): K91.30 - POSTPROC INTESTINAL OBST, UNSP TO PARTIAL VERSUS COMPLETE Status: Acute (19) Anemia due to acute blood loss Code(s): D62 - ACUTE POSTHEMORRHAGIC ANEMIA Status: Acute - Plan cont current plan of care, continue antibiotics, incentive spirometry, out of bed/ambulate * continue zosyn and vancomycin * wbc count is going up, will monitor * continue humilin N 33 unit sc daily and humalog as per sliding scale * medication reviewed as below * symptomatic treatment. * continue post operative care as per surgeon * ambulate * diet as per surgeon Review of Systems - Review of Systems Eyes: negative: Pain, Vision Change, Conjunctivae Inflammation, Eyelid Inflammation, Redness, Other ENT: negative: Ear Pain, Ear Discharge, Nose Pain, Nose Discharge, Nose Congestion, Mouth Pain, Mouth Swelling, Throat Pain, Throat Swelling, Other Respiratory: negative: Cough, Dry, Shortness of Breath, Hemoptysis, SOB with Excertion, Pleuritic Pain, Sputum, Wheezing Cardiovascular: negative: chest pain, palpitations, orthopnea, paroxysmal nocturnal dyspnea, edema, light headedness, other Gastrointestinal: negative: Nausea, Vomiting, Abdominal Pain, Diarrhea, Constipation, Melena, Hematochezia, Other Genitourinary: negative: Dysuria, Frequency, Incontinence, Hematuria, Retention , Other Musculoskeletal: negative: Neck Pain, Shoulder Pain, Arm Pain, Back Pain, Hand Pain, Leg Pain, Foot Pain, Other - Medications/Allergies Allergies/Adverse Reactions: Allergies Allergy/AdvReac Type Severity Reaction Status Date / Time No Known Drug Allergies Allergy Verified 04/18/18 19:40 Medications: Current Medications Acetaminophen (Tylenol) 1,000 mg PO Q6H PRN PRN Reason: Moderate to Severe Pain (6-10) Albuterol Sulfate (Ventolin) 2.5 mg NEB [id number] [facility] Last Admin: 04/23/18 06:36 Dose: 2.5 mg Artificial Tears (Tears Naturale) 0 drop EA EYE PRN PRN PRN Reason: Dry Eyes Aspirin (Ecotrin) 81 mg PO DAILY [facility] Last Admin: 04/23/18 09:19 Dose: 81 mg Beclomethasone Dipropionate (Qvar) 1 puff IH BID-RT [facility] Last Admin: 04/23/18 06:34 Dose: Not Given Clotrimazole (Lotrimin 1% Cream) 0 gm TOP BID PRN PRN Reason: Rash/Topical Irritation Dextrose/Water (Dextrose 50%) 25 gm SLOW IVP PRN PRN PRN Reason: Hypoglycemia Diphenhydramine HCl (Benadryl) 25 mg PO BID [facility] Last Admin: 04/23/18 09:20 Dose: 25 mg Furosemide (Lasix) 40 mg PO BID [facility] Last Admin: 04/23/18 09:22 Dose: 40 mg Glucagon (Glucagon) 1 mg IM PRN PRN PRN Reason: Hypoglycemia Hydralazine HCl (Apresoline) 10 mg SLOW IVP Q4H PRN PRN Reason: Systolic BP > 180 Dextrose/Water (D5w) 1,000 mls @ 0 mls/hr IV .Q0M PRN; As Directed PRN Reason: Hypoglycemia Piperacillin Sod/Tazobactam Sod 3.375 gm/ Miscellaneous Medication 1 each/ Sodium Chloride 100 mls @ 200 mls/hr IVPB Q6HR [facility] Last Admin: 04/23/18 05:47 Dose: 100 mls Vancomycin HCl 1 gm/ Device 200 mls @ 200 mls/hr IVPB 0000,1200 [facility] Last Admin: 04/23/18 00:55 Dose: 200 mls Insulin Human Lispro (Humalog) 0 units SC .AGGRESSIVE SLIDING PRN PRN Reason: Aggressive Correctional Scale Last Admin: 04/22/18 16:39 Dose: 3 unit Insulin Human NPH (Humulin N) 33 unit SC QAM [facility] Last Admin: 04/23/18 09:20 Dose: 33 unit Insulin Human Regular (Humulin R) 5 units SC BID-WM [facility] Last Admin: 04/23/18 09:23 Dose: Not Given Lactulose (Lactulose) 20 gm PO TID [facility] Last Admin: 04/23/18 09:24 Dose: Not Given Mineral Oil/White Petrolatum (Eucerin Cream) 0 gm TOP BIDPRN PRN PRN Reason: Dry Skin Miscellaneous Medication (Pharmacy To Dose) 1 each IVPB ASDIR PRN PRN Reason: Pharmacy to Dose VANCOMYCIN Mometasone Furoate/Formoterol Fumar (Dulera 100 Mcg/5 Mcg Inhaler) 1 puff INH BID-RT [facility] Last Admin: 04/23/18 06:34 Dose: 1 puff Morphine Sulfate (Morphine) 2 mg SLOW IVP Q2H PRN PRN Reason: Mild Pain (1-3) Last Admin: 04/22/18 18:11 Dose: 2 mg Morphine Sulfate (Morphine Sulfate) 4 mg SLOW IVP Q2H PRN PRN Reason: Moderate Pain (4-6) Last Admin: 04/20/18 09:35 Dose: 4 mg Ondansetron HCl (Zofran) 4 mg IVP Q6H PRN PRN Reason: Nausea/Vomiting Last Admin: 04/22/18 18:10 Dose: 4 mg Pantoprazole Sodium (Protonix) 40 mg IVP Q12HR [facility] Last Admin: 04/23/18 09:19 Dose: 40 mg Phenol (Chloraseptic [place] 180 Ml Bot) 0 ml PO PRN PRN PRN Reason: Sore Throat Polyethylene Glycol (Miralax) 17 gm PO DAILY [facility] Last Admin: 04/23/18 09:19 Dose: 17 gm Sodium Chloride (Flush - Normal Saline) 10 ml IVF PRN PRN PRN Reason: Saline Flush Sodium Chloride (Flush - Normal Saline) 10 ml IV Q12HR [facility] Last Admin: 04/23/18 09:24 Dose: 10 ml Sodium Chloride ([place] Nasal [place] 0.65%) 0 ml EA NARE QIDPRN PRN PRN Reason: Nasal Congestion Spironolactone (Aldactone) 100 mg PO BID [facility] Last Admin: 04/23/18 09:19 Dose: 100 mg Tramadol HCl (Ultram) 50 mg PO Q6H PRN PRN Reason: Pain Tramadol HCl (Ultram) 100 mg PO Q6H PRN PRN Reason: Pain Last Admin: 04/23/18 05:48 Dose: 100 mg
[2018-04-23] MEDS: HumaLOG 300 UNITS/3 ML VIAL SC PRN (11:47)
[2018-04-23] MEDS: Ondansetron HCl/PF 4 MG/2 ML Vial IVP PRN (11:47)
[2018-04-23] MEDS ORDERED: Spironolactone 100 MG TAB PO SCH (22:15)
[2018-04-23 23:15] LABS: Vancomycin, Trough 20.7 ug/mL
[2018-04-24] MEDS: Albuterol Sulfate 2.5 mg/3 ml Neb NEB SCH ×4 (00:50→19:08)
[2018-04-24] MEDS: Piperacillin/Tazobactam 3.375 GM, Admixture Fee 1 EACH in Sodium Chloride 0.9% 100 ML IVPB SCH ×5 (00:59→23:34)
[2018-04-24] MEDS: Vancomycin HCl 750 MG in Sodium Chloride 0.9% 250 ML 250 ML IVPB SCH ×2 (00:59→12:51)
[2018-04-24] MEDS: traMADol HCl 50 MG TAB PO PRN ×4 (04:26→23:34)
[2018-04-24] MEDS: Beclomethasone 80 mcg 120 PUFF/8.7 GM AER IH SCH ×2 (06:59→19:06)
[2018-04-24] MEDS: Mometasone/Formoterol 120 PUFF INHALER INH SCH ×2 (07:01→19:07)
[2018-04-24 07:04] LABS: ALT (SGPT) 29 U/L (8-55); AST (SGOT) 35 U/L (5-34); Albumin 3.5 g/dL (3.5-5.0); Alkaline Phosphatase 87 U/L (40-150); Anion Gap 16 mmol/L (10-20); BUN (Urea Nitrogen) 19 mg/dL (8.4-25.7); Bilirubin, Total 5.8 mg/dL (0.2-1.2); Calc. Creatinine Clearance 77 mL/min (70-130); Calcium 8.9 mg/dL (7.8-10.44); Carbon Dioxide 22 mmol/L (22-29); Chloride 96 mmol/L (98-107); Estimated GFR-MDRD 74; Globulin 2.6 g/dL (2.4-3.5); Glucose 173 mg/dL (70-105); Potassium 4.1 mmol/L (3.5-5.1); Protein, Total 6.1 g/dL (6.0-8.3); Sodium 130 mmol/L (136-145)
[2018-04-24 07:24] LABS: Hemoglobin 11.6 g/dL (14.0-18.0); Mean Corpuscular HGB CONC 34.9 g/dL (32.0-36.0); Mean Corpuscular Hemoglobin 31.1 pg (27.0-31.0); Mean Corpuscular Volume 89.1 fL (78.0-98.0); Mean Platelet Volume 7.5 fL (7.4-10.4); Platelet Count 102 thou/uL (130-400); RBC Distribution Width 14.5 % (11.5-14.5); Red Blood Cell (RBC) Count 3.74 mill/uL (4.70-6.10); White Blood Cell (WBC) Count 10.8 thou/uL (4.8-10.8)
[2018-04-24] MEDS: Pantoprazole 40 MG VIAL IVP SCH ×2 (09:06→20:05)
[2018-04-24] MEDS: diphenhydrAMINE 25 MG CAP PO SCH ×2 (09:06→20:06)
[2018-04-24] MEDS: Furosemide 40 MG TAB PO SCH ×2 (09:07→20:06)
[2018-04-24] MEDS: Spironolactone 100 MG TAB PO SCH ×2 (09:07→20:06)
[2018-04-24] MEDS: Aspirin 81 mg Enteric Coated Tablet PO SCH (09:07)
[2018-04-24] MEDS: Polyethylene Glycol 3350 17 GM Packet PO SCH (09:07)
[2018-04-24] MEDS: NPH, Human Insulin Isophane 300 UNIT/3 ML VIAL SC SCH (09:08)
--- NOTE | 2018-04-24 10:54 | PDOC.PN ---
- Subjective Encounter Start Date: 04/24/18 Encounter Start Time: 08:10 Patient seen and examined for cirrhosis. No new complaints. No overnight events - Objective MAR Reviewed: Yes Vital Signs & Weight: Vital Signs (12 hours) Temp Pulse Resp BP BP Pulse Ox 04/24/18 07:17 98.2 F 95 18 133/85 98 04/24/18 07:02 92 16 97 04/24/18 04:00 98 F 90 18 126/89 93 L 04/24/18 00:50 90 14 96 04/24/18 00:00 98.3 F 92 16 128/80 92 L Most Recent Monitor Data Heart Rate from ECG 101 NIBP 96/51 NIBP BP-Mean 63 Respiration from ECG 21 SpO2 96 I&O: 04/23/18 04/24/18 04/25/18 06:59 06:59 06:59 Intake Total 1290 1250 Output Total 2035 1450 550 Balance -725 -200 -550 Result Diagrams: 04/24/18 22:50 04/24/18 22:50 Additional Labs: Accuchecks 04/24/18 04/23/18 04/23/18 05:56 20:49 15:49 POC Glucose 188 H 165 H 157 H 04/23/18 10:43 POC Glucose 252 H Phys Exam - Physical Examination Constitutional: NAD HEENT: PERRLA, moist MMs, sclera anicteric Neck: no JVD, supple Respiratory: no wheezing, no rales, no rhonchi Cardiovascular: RRR, no significant murmur, no rub Gastrointestinal: soft, positive bowel sounds ascites+ surgical site clean, Musculoskeletal: no edema, pulses present Neurological: non-focal, normal sensation Lymphatic: no nodes Psychiatric: normal affect Skin: no rash, normal turgor Dx/Plan (1) Acute abdomen Code(s): R10.0 - ACUTE ABDOMEN Status: Acute Comment: due to 2 (2) Perforated abdominal viscus Code(s): [id number] - Status: Acute (3) S/P laparotomy Status: Acute Comment: for problem 1 (4) Abnormal LFTs Code(s): R94.5 - ABNORMAL RESULTS OF LIVER FUNCTION STUDIES Status: Chronic (5) Diastolic dysfunction Code(s): I51.9 - HEART DISEASE, UNSPECIFIED Status: Chronic (6) Pancytopenia Code(s): D61.818 - OTHER PANCYTOPENIA Status: Chronic (7) Thrombocytopenia Code(s): D69.6 - THROMBOCYTOPENIA, UNSPECIFIED Status: Chronic (8) Anxiety and depression Code(s): F41.9 - ANXIETY DISORDER, UNSPECIFIED; F32.9 - MAJOR DEPRESSIVE DISORDER, SINGLE EPISODE, UNSPECIFIED Status: Chronic (9) Asthma Code(s): J45.909 - UNSPECIFIED ASTHMA, UNCOMPLICATED Status: Chronic (10) Cirrhosis of liver Code(s): K74.60 - UNSPECIFIED CIRRHOSIS OF LIVER Status: Chronic Qualifiers: Hepatic cirrhosis type: unspecified biliary cirrhosis Qualified Code(s): K74.5 - Biliary cirrhosis, unspecified (11) Diabetes type 2, controlled Code(s): E11.9 - TYPE 2 DIABETES MELLITUS WITHOUT COMPLICATIONS Status: Chronic (12) Dyslipidemia Code(s): E78.5 - HYPERLIPIDEMIA, UNSPECIFIED Status: Chronic (13) Hypertension Code(s): I10 - ESSENTIAL (PRIMARY) HYPERTENSION Status: Chronic (14) Acute kidney failure Status: Resolved (15) Hypokalemia Code(s): E87.6 - HYPOKALEMIA Status: Resolved (16) Hyponatremia Code(s): E87.1 - HYPO-OSMOLALITY AND HYPONATREMIA Status: Resolved (17) Wound infection Code(s): T14.8XXA - OTHER INJURY OF UNSPECIFIED BODY REGION, INITIAL ENCOUNTER; L08.9 - LOCAL INFECTION OF THE SKIN AND SUBCUTANEOUS TISSUE, UNSP Status: Acute Comment: over scalp with staph (18) Ileus following gastrointestinal surgery Code(s): K91.30 - POSTPROC INTESTINAL OBST, UNSP TO PARTIAL VERSUS COMPLETE Status: Acute (19) Anemia due to acute blood loss Code(s): D62 - ACUTE POSTHEMORRHAGIC ANEMIA Status: Acute - Plan cont current plan of care, continue antibiotics * continue zosyn and vancomycin * wound care * medication reviewed as below * symptomatic treatment * hopefully will be able to discharge to group home tomorrow * only concern is that his incision on top may be dehiscence risk. Review of Systems - Review of Systems Eyes: negative: Pain, Vision Change, Conjunctivae Inflammation, Eyelid Inflammation, Redness, Other ENT: negative: Ear Pain, Ear Discharge, Nose Pain, Nose Discharge, Nose Congestion, Mouth Pain, Mouth Swelling, Throat Pain, Throat Swelling, Other Respiratory: negative: Cough, Dry, Shortness of Breath, Hemoptysis, SOB with Excertion, Pleuritic Pain, Sputum, Wheezing Cardiovascular: negative: chest pain, palpitations, orthopnea, paroxysmal nocturnal dyspnea, edema, light headedness, other Gastrointestinal: negative: Nausea, Vomiting, Abdominal Pain, Diarrhea, Constipation, Melena, Hematochezia, Other Genitourinary: negative: Dysuria, Frequency, Incontinence, Hematuria, Retention , Other Musculoskeletal: negative: Neck Pain, Shoulder Pain, Arm Pain, Back Pain, Hand Pain, Leg Pain, Foot Pain, Other Skin: negative: Rash, Lesions, [place], Bruising, Other - Medications/Allergies Allergies/Adverse Reactions: Allergies Allergy/AdvReac Type Severity Reaction Status Date / Time No Known Drug Allergies Allergy Verified 04/18/18 19:40 Medications: Current Medications Acetaminophen (Tylenol) 1,000 mg PO Q6H PRN PRN Reason: Moderate to Severe Pain (6-10) Albuterol Sulfate (Ventolin) 2.5 mg NEB [id number] [facility] Last Admin: 04/24/18 07:02 Dose: 2.5 mg Artificial Tears (Tears Naturale) 0 drop EA EYE PRN PRN PRN Reason: Dry Eyes Aspirin (Ecotrin) 81 mg PO DAILY [facility] Last Admin: 04/24/18 09:07 Dose: 81 mg Beclomethasone Dipropionate (Qvar) 1 puff IH BID-RT [facility] Last Admin: 04/24/18 06:59 Dose: Not Given Clotrimazole (Lotrimin 1% Cream) 0 gm TOP BID PRN PRN Reason: Rash/Topical Irritation Dextrose/Water (Dextrose 50%) 25 gm SLOW IVP PRN PRN PRN Reason: Hypoglycemia Diphenhydramine HCl (Benadryl) 25 mg PO BID [facility] Last Admin: 04/24/18 09:06 Dose: 25 mg Furosemide (Lasix) 40 mg PO BID [facility] Last Admin: 04/24/18 09:07 Dose: 40 mg Glucagon (Glucagon) 1 mg IM PRN PRN PRN Reason: Hypoglycemia Hydralazine HCl (Apresoline) 10 mg SLOW IVP Q4H PRN PRN Reason: Systolic BP > 180 Dextrose/Water (D5w) 1,000 mls @ 0 mls/hr IV .Q0M PRN; As Directed PRN Reason: Hypoglycemia Piperacillin Sod/Tazobactam Sod 3.375 gm/ Miscellaneous Medication 1 each/ Sodium Chloride 100 mls @ 200 mls/hr IVPB Q6HR [facility] Last Admin: 04/24/18 06:58 Dose: 100 mls Vancomycin HCl 750 mg/ Sodium (Chloride) 250 mls @ 250 mls/hr IVPB 1200,2359 [facility] Last Admin: 04/24/18 00:59 Dose: 250 mls Insulin Human Lispro (Humalog) 0 units SC .AGGRESSIVE SLIDING PRN PRN Reason: Aggressive Correctional Scale Last Admin: 04/23/18 11:47 Dose: 9 unit Insulin Human NPH (Humulin N) 33 unit SC QAM [facility] Last Admin: 04/24/18 09:08 Dose: 33 unit Lactulose (Lactulose) 20 gm PO TID [facility] Last Admin: 04/24/18 09:07 Dose: Not Given Mineral Oil/White Petrolatum (Eucerin Cream) 0 gm TOP BIDPRN PRN PRN Reason: Dry Skin Miscellaneous Medication (Pharmacy To Dose) 1 each IVPB ASDIR PRN PRN Reason: Pharmacy to Dose VANCOMYCIN Mometasone Furoate/Formoterol Fumar (Dulera 100 Mcg/5 Mcg Inhaler) 1 puff INH BID-RT [facility] Last Admin: 04/24/18 07:01 Dose: 1 puff Morphine Sulfate (Morphine) 2 mg SLOW IVP Q2H PRN PRN Reason: Mild Pain (1-3) Last Admin: 04/22/18 18:11 Dose: 2 mg Morphine Sulfate (Morphine Sulfate) 4 mg SLOW IVP Q2H PRN PRN Reason: Moderate Pain (4-6) Last Admin: 04/20/18 09:35 Dose: 4 mg Ondansetron HCl (Zofran) 4 mg IVP Q6H PRN PRN Reason: Nausea/Vomiting Last Admin: 04/23/18 11:47 Dose: 4 mg Pantoprazole Sodium (Protonix) 40 mg IVP Q12HR [facility] Last Admin: 04/24/18 09:06 Dose: 40 mg Phenol (Chloraseptic [place] 180 Ml Bot) 0 ml PO PRN PRN PRN Reason: Sore Throat Polyethylene Glycol (Miralax) 17 gm PO DAILY [facility] Last Admin: 04/24/18 09:07 Dose: 17 gm Sodium Chloride (Flush - Normal Saline) 10 ml IVF PRN PRN PRN Reason: Saline Flush Sodium Chloride (Flush - Normal Saline) 10 ml IV Q12HR [facility] Last Admin: 04/24/18 09:06 Dose: 10 ml Sodium Chloride ([place] Nasal [place] 0.65%) 0 ml EA NARE QIDPRN PRN PRN Reason: Nasal Congestion Spironolactone (Aldactone) 100 mg PO BID [facility] Last Admin: 04/24/18 09:07 Dose: 100 mg Tramadol HCl (Ultram) 50 mg PO Q6H PRN PRN Reason: Pain Tramadol HCl (Ultram) 100 mg PO Q6H PRN PRN Reason: Pain Last Admin: 04/24/18 04:26 Dose: 100 mg
[2018-04-24] MEDS: HumaLOG 300 UNITS/3 ML VIAL SC PRN (11:22)
[2018-04-24 23:20] LABS: Band 15 % (5-11); Eosinophils 2 % (0-10); Lymphocytes 2 % (21-51); MDiff Complete? YES; Metamyelocyte 1 % (0-0); Monocytes 8 % (0-10); Neutrophil 70 % (42-75); PLT Morphology Comment Appears Decreased; Reactive Lymphocytes 1 % (0-10)
[2018-04-25] MEDS: Vancomycin HCl 750 MG in Sodium Chloride 0.9% 250 ML 250 ML IVPB SCH ×2 (00:10→13:28)
[2018-04-25] MEDS: Acetaminophen 500 MG TAB PO PRN ×2 (03:38→12:51)
[2018-04-25] MEDS: Piperacillin/Tazobactam 3.375 GM, Admixture Fee 1 EACH in Sodium Chloride 0.9% 100 ML IVPB SCH ×2 (05:03→13:27)
[2018-04-25 05:40] LABS: ALT (SGPT) 33 U/L (8-55); AST (SGOT) 44 U/L (5-34); Albumin 3.4 g/dL (3.5-5.0); Alkaline Phosphatase 109 U/L (40-150); Anion Gap 12 mmol/L (10-20); BUN (Urea Nitrogen) 19 mg/dL (8.4-25.7); Calc. Creatinine Clearance 74 mL/min (70-130); Calcium 8.6 mg/dL (7.8-10.44); Carbon Dioxide 24 mmol/L (22-29); Chloride 97 mmol/L (98-107); Estimated GFR-MDRD 71; Glucose 111 mg/dL (70-105); Potassium 3.6 mmol/L (3.5-5.1); Protein, Total 6.4 g/dL (6.0-8.3); Sodium 129 mmol/L (136-145)
[2018-04-25 06:10] LABS: Band 9 % (5-11); Hemoglobin 11.6 g/dL (14.0-18.0); Lymphocytes 14 % (21-51); MDiff Complete? YES; Mean Corpuscular HGB CONC 35.2 g/dL (32.0-36.0); Mean Corpuscular Hemoglobin 31.3 pg (27.0-31.0); Mean Corpuscular Volume 88.9 fL (78.0-98.0); Mean Platelet Volume 7.1 fL (7.4-10.4); Metamyelocyte 1 % (0-0); Monocytes 4 % (0-10); Neutrophil 72 % (42-75); PLT Morphology Comment Appears Decreased; Platelet Count 96 thou/uL (130-400); RBC Distribution Width 14.5 % (11.5-14.5); Red Blood Cell (RBC) Count 3.71 mill/uL (4.70-6.10); White Blood Cell (WBC) Count 10.1 thou/uL (4.8-10.8)
[2018-04-25] MEDS: Mometasone/Formoterol 120 PUFF INHALER INH SCH (06:38)
[2018-04-25] MEDS: Albuterol Sulfate 2.5 mg/3 ml Neb NEB SCH ×2 (06:38)
[2018-04-25] MEDS: diphenhydrAMINE 25 MG CAP PO SCH (09:00)
[2018-04-25] MEDS: Furosemide 40 MG TAB PO SCH (09:01)
[2018-04-25] MEDS: Aspirin 81 mg Enteric Coated Tablet PO SCH (09:01)
[2018-04-25] MEDS: Spironolactone 100 MG TAB PO SCH (09:01)
[2018-04-25] MEDS: Pantoprazole 40 MG VIAL IVP SCH (09:01)
[2018-04-25] MEDS: NPH, Human Insulin Isophane 300 UNIT/3 ML VIAL SC SCH (09:02)
[2018-04-25] MEDS: traMADol HCl 50 MG TAB PO PRN ×2 (09:04→17:21)
[2018-04-25] MEDS: Polyethylene Glycol 3350 17 GM Packet PO SCH (09:08)
[2018-04-25] MEDS ORDERED: Lidocaine 1% (PF) 30 ML VIAL ONE (09:53)
--- NOTE | 2018-04-25 11:00 | PDOC.PN ---
- Subjective Encounter Start Date: 04/25/18 Encounter Start Time: 08:30 Patient seen and examined. No new complaints. No overnight events - Objective MAR Reviewed: Yes Vital Signs & Weight: Vital Signs (12 hours) Temp Pulse Resp BP BP Pulse Ox 04/25/18 08:00 97.8 F 98 14 119/78 98 04/25/18 06:38 80 12 04/25/18 04:57 95 04/25/18 04:00 98 F 93 18 117/76 95 04/25/18 00:00 94 L Most Recent Monitor Data Heart Rate from ECG 101 NIBP 96/51 NIBP BP-Mean 63 Respiration from ECG 21 SpO2 96 I&O: 04/24/18 04/25/18 04/26/18 06:59 06:59 06:59 Intake Total 1250 2690 Output Total 1450 3845 Balance -200 -1155 Result Diagrams: 04/25/18 05:21 04/25/18 05:21 Additional Labs: Accuchecks 04/25/18 04/24/18 04/24/18 05:44 21:24 15:40 POC Glucose 111 H 132 H 107 04/24/18 11:19 POC Glucose 221 H Phys Exam - Physical Examination Constitutional: NAD HEENT: PERRLA, moist MMs icterus+ Neck: no JVD, supple Respiratory: no wheezing, no rales, no rhonchi Cardiovascular: RRR, no significant murmur, no rub Gastrointestinal: soft, non-tender, no distention, positive bowel sounds ascites+ surgical site with dressing Musculoskeletal: no edema, pulses present Neurological: non-focal, normal sensation Psychiatric: normal affect, A&O x 3 Skin: no rash, normal turgor Dx/Plan (1) Acute abdomen Code(s): R10.0 - ACUTE ABDOMEN Status: Acute Comment: due to 2 (2) Perforated abdominal viscus Code(s): [id number] - Status: Acute (3) S/P laparotomy Status: Acute Comment: for problem 1 (4) Abnormal LFTs Code(s): R94.5 - ABNORMAL RESULTS OF LIVER FUNCTION STUDIES Status: Chronic (5) Diastolic dysfunction Code(s): I51.9 - HEART DISEASE, UNSPECIFIED Status: Chronic (6) Pancytopenia Code(s): D61.818 - OTHER PANCYTOPENIA Status: Chronic (7) Thrombocytopenia Code(s): D69.6 - THROMBOCYTOPENIA, UNSPECIFIED Status: Chronic (8) Anxiety and depression Code(s): F41.9 - ANXIETY DISORDER, UNSPECIFIED; F32.9 - MAJOR DEPRESSIVE DISORDER, SINGLE EPISODE, UNSPECIFIED Status: Chronic (9) Asthma Code(s): J45.909 - UNSPECIFIED ASTHMA, UNCOMPLICATED Status: Chronic (10) Cirrhosis of liver Code(s): K74.60 - UNSPECIFIED CIRRHOSIS OF LIVER Status: Chronic Qualifiers: Hepatic cirrhosis type: unspecified biliary cirrhosis Qualified Code(s): K74.5 - Biliary cirrhosis, unspecified (11) Diabetes type 2, controlled Code(s): E11.9 - TYPE 2 DIABETES MELLITUS WITHOUT COMPLICATIONS Status: Chronic (12) Dyslipidemia Code(s): E78.5 - HYPERLIPIDEMIA, UNSPECIFIED Status: Chronic (13) Hypertension Code(s): I10 - ESSENTIAL (PRIMARY) HYPERTENSION Status: Chronic (14) Acute kidney failure Status: Resolved (15) Hypokalemia Code(s): E87.6 - HYPOKALEMIA Status: Resolved (16) Hyponatremia Code(s): E87.1 - HYPO-OSMOLALITY AND HYPONATREMIA Status: Resolved (17) Wound infection Code(s): T14.8XXA - OTHER INJURY OF UNSPECIFIED BODY REGION, INITIAL ENCOUNTER; L08.9 - LOCAL INFECTION OF THE SKIN AND SUBCUTANEOUS TISSUE, UNSP Status: Acute Comment: over scalp with staph (18) Ileus following gastrointestinal surgery Code(s): K91.30 - POSTPROC INTESTINAL OBST, UNSP TO PARTIAL VERSUS COMPLETE Status: Acute (19) Anemia due to acute blood loss Code(s): D62 - ACUTE POSTHEMORRHAGIC ANEMIA Status: Acute - Plan cont current plan of care, continue antibiotics * continue post operative care as per surgeon * wound care at surgical site * medication reviewed as below * symptomatic treatment * see discharge summery later on if discharged by primary team * stable medically for discharge * discharge medication reconciliation done. * will add minocycline on discharge for mrsa infection Review of Systems - Review of Systems Eyes: negative: Pain, Vision Change, Conjunctivae Inflammation, Eyelid Inflammation, Redness, Other ENT: negative: Ear Pain, Ear Discharge, Nose Pain, Nose Discharge, Nose Congestion, Mouth Pain, Mouth Swelling, Throat Pain, Throat Swelling, Other Respiratory: negative: Cough, Dry, Shortness of Breath, Hemoptysis, SOB with Excertion, Pleuritic Pain, Sputum, Wheezing Cardiovascular: negative: chest pain, palpitations, orthopnea, paroxysmal nocturnal dyspnea, edema, light headedness, other Gastrointestinal: negative: Nausea, Vomiting, Abdominal Pain, Diarrhea, Constipation, Melena, Hematochezia, Other Genitourinary: negative: Dysuria, Frequency, Incontinence, Hematuria, Retention , Other Musculoskeletal: negative: Neck Pain, Shoulder Pain, Arm Pain, Back Pain, Hand Pain, Leg Pain, Foot Pain, Other - Medications/Allergies Allergies/Adverse Reactions: Allergies Allergy/AdvReac Type Severity Reaction Status Date / Time No Known Drug Allergies Allergy Verified 04/18/18 19:40 Medications: Current Medications Acetaminophen (Tylenol) 1,000 mg PO Q6H PRN PRN Reason: Moderate to Severe Pain (6-10) Last Admin: 04/25/18 03:38 Dose: 1,000 mg Albuterol Sulfate (Ventolin) 2.5 mg NEB [id number] [facility] Last Admin: 04/25/18 06:38 Dose: 2.5 mg Artificial Tears (Tears Naturale) 0 drop EA EYE PRN PRN PRN Reason: Dry Eyes Aspirin (Ecotrin) 81 mg PO DAILY [facility] Last Admin: 04/25/18 09:01 Dose: 81 mg Clotrimazole (Lotrimin 1% Cream) 0 gm TOP BID PRN PRN Reason: Rash/Topical Irritation Dextrose/Water (Dextrose 50%) 25 gm SLOW IVP PRN PRN PRN Reason: Hypoglycemia Diphenhydramine HCl (Benadryl) 25 mg PO BID [facility] Last Admin: 04/25/18 09:00 Dose: 25 mg Furosemide (Lasix) 40 mg PO BID [facility] Last Admin: 04/25/18 09:01 Dose: 40 mg Glucagon (Glucagon) 1 mg IM PRN PRN PRN Reason: Hypoglycemia Hydralazine HCl (Apresoline) 10 mg SLOW IVP Q4H PRN PRN Reason: Systolic BP > 180 Dextrose/Water (D5w) 1,000 mls @ 0 mls/hr IV .Q0M PRN; As Directed PRN Reason: Hypoglycemia Piperacillin Sod/Tazobactam Sod 3.375 gm/ Miscellaneous Medication 1 each/ Sodium Chloride 100 mls @ 200 mls/hr IVPB Q6HR [facility] Last Admin: 04/25/18 05:03 Dose: 100 mls Vancomycin HCl 750 mg/ Sodium (Chloride) 250 mls @ 250 mls/hr IVPB 1200,2359 [facility] Last Admin: 04/25/18 00:10 Dose: 250 mls Insulin Human Lispro (Humalog) 0 units SC .AGGRESSIVE SLIDING PRN PRN Reason: Aggressive Correctional Scale Last Admin: 04/24/18 11:22 Dose: 6 unit Insulin Human NPH (Humulin N) 33 unit SC QAM [facility] Last Admin: 04/25/18 09:02 Dose: 33 unit Lactulose (Lactulose) 20 gm PO TID [facility] Last Admin: 04/25/18 09:11 Dose: Not Given Mineral Oil/White Petrolatum (Eucerin Cream) 0 gm TOP BIDPRN PRN PRN Reason: Dry Skin Miscellaneous Medication (Pharmacy To Dose) 1 each IVPB ASDIR PRN PRN Reason: Pharmacy to Dose VANCOMYCIN Mometasone Furoate/Formoterol Fumar (Dulera 100 Mcg/5 Mcg Inhaler) 1 puff INH BID-RT [facility] Last Admin: 04/25/18 06:38 Dose: 1 puff Morphine Sulfate (Morphine) 2 mg SLOW IVP Q2H PRN PRN Reason: Mild Pain (1-3) Last Admin: 04/22/18 18:11 Dose: 2 mg Morphine Sulfate (Morphine Sulfate) 4 mg SLOW IVP Q2H PRN PRN Reason: Moderate Pain (4-6) Last Admin: 04/20/18 09:35 Dose: 4 mg Ondansetron HCl (Zofran) 4 mg IVP Q6H PRN PRN Reason: Nausea/Vomiting Last Admin: 04/23/18 11:47 Dose: 4 mg Pantoprazole Sodium (Protonix) 40 mg IVP Q12HR [facility] Last Admin: 04/25/18 09:01 Dose: 40 mg Phenol (Chloraseptic Jansen 180 Ml Bot) 0 ml PO PRN PRN PRN Reason: Sore Throat Polyethylene Glycol (Miralax) 17 gm PO DAILY [facility] Last Admin: 04/25/18 09:08 Dose: 17 gm Sodium Chloride (Flush - Normal Saline) 10 ml IVF PRN PRN PRN Reason: Saline Flush Last Admin: 04/24/18 20:10 Dose: 10 ml Sodium Chloride (Flush - Normal Saline) 10 ml IV Q12HR [facility] Last Admin: 04/25/18 09:02 Dose: 10 ml Sodium Chloride (Grundy Nasal Jansen 0.65%) 0 ml EA NARE QIDPRN PRN PRN Reason: Nasal Congestion Spironolactone (Aldactone) 100 mg PO BID [facility] Last Admin: 04/25/18 09:01 Dose: 100 mg Tramadol HCl (Ultram) 50 mg PO Q6H PRN PRN Reason: Pain Tramadol HCl (Ultram) 100 mg PO Q6H PRN PRN Reason: Pain Last Admin: 04/25/18 09:04 Dose: 100 mg
[2018-04-25] MEDS: HumaLOG 300 UNITS/3 ML VIAL SC PRN (11:07)
[2018-04-25 11:39] LABS: Vancomycin, Trough 16.5 ug/mL
[2018-04-25] MEDS: Beclomethasone 80 mcg 120 PUFF/8.7 GM AER IH SCH (11:57)
--- NOTE | 2018-04-25 12:47 | DIS ---
PRIMARY CARE PHYSICIAN: [facility] call admission. DATE OF DISCHARGE: 04/25/2018 DISCHARGE DISPOSITION: Residential. PRIMARY DISCHARGE DIAGNOSES: 1. Acute abdomen due to perforated pyloric channel ulcer, status post laparotomy and omentoplasty. 2. Anemia due to acute blood loss. 3. Postoperative ileus, resolved. 4. Abscess over scalp, status post I&D with methicillin-resistant Staphylococcus aureus. 5. Hypokalemia, hyponatremia, corrected. 6. Acute kidney failure, improved. SECONDARY DISCHARGE DIAGNOSES: Chronic thrombocytopenia, pancytopenia, hypertension, dyslipidemia, d iastolic dysfunction, diabetes type 2, primary biliary cirrhosis, asthma, anxiety and depression. PRIMARY PROCEDURE/OPERATION: Laparotomy and omentoplasty with omental patch for pyloric channel ulce r by Dr. Taveras. Central line placement. RADIOLOGICAL INVESTIGATION: Abdomen and pelvis CT scan showed acute abdomen due to perforated viscus . Chest x-ray was unremarkable. Echocardiography showed diastolic dysfunction. SIGNIFICANT LABORATORY DATA: WBC 10.1, hemoglobin 11.6, platelet 96. INR 1.5. Sodium 129, creatini ne 1.017. Bilirubin 5.0. AST 44, ALT 33, alkaline phosphatase 109, albumin 3.4. Hepatitis profile negative. Culture from the abscess from the scalp grew MRSA. DISCHARGE MEDICATIONS: Minocycline 100 mg p.o. twice daily for 10 days, Tylenol 650 mg p.o. b.i.d. p .r.n., Proventil HFA 2 puffs q.6 hourly p.r.n., aspirin 81 mg p.o. daily, Lipitor 10 mg p.o. daily, Q cheryl 1 inhalation b.i.d., Celexa 20 mg p.o. daily, Lotrimin topical application b.i.d. p.r.n., Benadry l 25 mg p.o. b.i.d. p.r.n., ferrous sulfate 325 mg p.o. t.i.d., Lasix 40 mg p.o. b.i.d. and Novolin N 20 units subcu in the evening and 33 units subcu in the morning and Novolin R 5 units subcu b.i.d., lactulose 20 grams p.o. t.i.d., Synthroid 150 mcg p.o. daily, omeprazole 20 mg p.o. daily, and Indera l 20 mg p.o. b.i.d., rifaximin 600 mg p.o. b.i.d., risperidone 1 mg p.o. daily, Aldactone 100 mg p.o. b.i.d., Ursodiol 300 mg p.o. t.i.d. CONTRAINDICATIONS: None. CODE STATUS: FULL CODE. INPATIENT CONSULTANTS: Dr. Taveras was primary while in hospital. Sound Team was consulted for medic al comanagement. TEST RESULTS PENDING ON DISCHARGE: None. ALLERGIES: No known drug allergy. DISCHARGE PLAN: Post hospital, the patient is discharged back to halfway where patient will get wound c are at surgical site. The patient will be monitored for hypoglycemia as well as wound for infection. The patient is discharged to longterm and subsequently he will follow up with Dr. Taveras as instructed. HOSPITAL COURSE: The patient is a 57-year-old male with above-mentioned medical problem who had acut e abdominal pain at the halfway, which was gradually progressed by the end of the day. The patient requ ired CT of the abdomen and pelvis which showed acute abdomen from perforated viscus. The patient was admitted under General Surgery. The patient was taken for laparotomy. The patient was found with p erforated pyloric channel ulcer which was treated with omentoplasty. The patient had a JOSE CARLOS drain and surgical site initially required wound VAC. Subsequently wound VAC discontinued and wound was closed . His wound was relatively doing well. The patient also had a couple of abscesses which was drained and grew MRSA and that is why he was getting vancomycin. Postoperatively and perioperatively patien t was getting Zosyn. The patient was also getting IV fluid and subsequently IV fluid was discontinued. He was having asci louise that was draining through the JOSE CARLOS drain as well. At this point, the patient has significant improvement after surgery and primary surgeon feels that t he patient is surgically stable for discharge from their perspective medically he is also okay for di scharge as well. He will continue all previous medications upon discharge. We prescribed minocyclin e for his MRSA infection. The patient is seen and examined at bedside today. I spoke with Dr. Taveras and he cleared him for di scharge. Please see my progress note from today for further details.
[2018-04-25 15:48] VITALS: BP 125/83; TEMP 98.1
--- NOTE | 2018-04-26 00:53 | DIS ---
DATE OF ADMISSION: 04/17/2018 DATE OF DISCHARGE: Transfer back to [facility], 04/25/2018 DISCHARGE DIAGNOSES: 1. Perforated pyloric channel ulcer with peritonitis. 2. 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 3. Methicillin-resistant Staphylococcus aureus abscess, forehead. 4. Diabetes mellitus, insulin-dependent. 5. Chronic anemia. PROCEDURES THIS HOSPITALIZATION: Exploratory laparotomy, Heineke-Mikulicz pyloroplasty with omental flap. Placement of central line. Transfusion of platelet products. Incision and drainage of forehe ad abscess on the day of discharge. DISCHARGE MEDICATIONS: Resume prehospitalization medications, and in addition minocycline 100 mg b.i .d., #20. Patient can take Tylenol as needed for pain; aspirin 81 mg a day; diphenhydramine p.r.n. 4 0 mg p.o. b.i.d.; lactulose t.i.d.; insulin 33 units subcu a.m. insulin isophane, as he was radha ing on admission; Dulera 1 puff b.i.d.; Zofran p.r.n.; course of MiraLax p.r.n., spironolactone 25 b. i.d., tramadol p.r.n. Follow up test. Jaquan removed. Abdomen, a week to 10 days, shower bathe daily washing open abdomi nal wound with soap and water, washing open forehead wound with soap and water, apply dry dressing ab dominal wound until there is no sores, may leave open after that. Antibiotic ointment, Band-Aid over forehead wound. No lifting over 25 pounds for 6 weeks. Low sodium diet. Note prior to discharge, the patient had continued drainage from his JOSE CARLOS drain site, right upper quadrant, and at the day of jayce bustillo, this wound was closed at bedside with interrupted sutures. These sutures can be removed in 7 to 10. HISTORY: This is a 57-year-old male with the above-medical problems, who presented with a perforated pyloric channel ulcer, verified by CAT scan with free air and found at operation undergoing the abov e procedure, and postoperatively convalescing to tolerate his diet. Resumed his medication to contro l his ascites. JOSE CARLOS drain was removed despite copious drainage of ascites fluid. He had continued [place] inage from the JOSE CARLOS drain tract and this was closed at bedside with sutures. The sutures can be remove d in 7-10 days. He will be discharged home with a PPI, Prilosec or Nexium once a day.
== END 2018-04-25 17:35 | DRG 326 ==
LOC: ERS 21:00 → SDC 22:54 → CCU 04-18 01:00 → SURG A 04-18 15:18
PROVIDERS: ADMIT Specialist; ATTEND Specialist
PROC: 0DU Gastrointestinal System, Supplement (ICD-10-PCS; principal; 2018-04-17)
PROC: 05H633Z Insertion of Infusion Device into Left Subclavian Vein, Percutaneous Approach (ICD-10-PCS; 2018-04-17)
PROC: 30233N1 Transfusion of Nonautologous Red Blood Cells into Peripheral Vein, Percutaneous Approach (ICD-10-PCS; 2018-04-17)
DX: K25.5 Chronic or unspecified gastric ulcer with perforation (principal); K65.9 Peritonitis, unspecified; R18.8 Other ascites; B19.10 Unspecified viral hepatitis B without hepatic coma; D62 Acute posthemorrhagic anemia; L02.811 Cutaneous abscess of head [any part, except face]; N17.9 Acute kidney failure, unspecified; D61.818 Other pancytopenia; E87.1 Hypo-osmolality and hyponatremia; K91.30 Postprocedural intestinal obstruction, unspecified as to partial versus complete; I50.32 Chronic diastolic (congestive) heart failure; I11.0 Hypertensive heart disease with heart failure; K74.60 Unspecified cirrhosis of liver; E11.9 Type 2 diabetes mellitus without complications; B19.20 Unspecified viral hepatitis C without hepatic coma; B95.62 Methicillin resistant Staphylococcus aureus infection as the cause of diseases classified elsewhere; E87.6 Hypokalemia; D69.6 Thrombocytopenia, unspecified; E78.5 Hyperlipidemia, unspecified; F41.9 Anxiety disorder, unspecified; F32.9 Major depressive disorder, single episode, unspecified; R06.89 Other abnormalities of breathing; Y83.8 Other surgical procedures as the cause of abnormal reaction of the patient, or of later complication, without mention of misadventure at the time of the procedure; Z79.4 Long term (current) use of insulin
CPT/HCPCS: 36415; 36416; 36430; 71045; 74177; 80053; 80074; 80202; 83690; 85025; 85610; 85730; 86850; 86900; 86901; 87070; 87077; 87186; 87205; 93005; 93306; 94640; 96361; 96365; 96375; 96376; A4216; C9113; G8978-GP-CM; G8979-GP-CJ; J1815; J1940; J2001; J2250; J2270; J2405; J2543; J2704; J3010; J3370; J3480; J7050; J7611; P9016; P9035; P9047; P9059; Q0162